=== PATIENT | male | born 1940 | race Hispanic/Latino ===

== ENCOUNTER 2023-02-11 13:10 | Emergency (ER) | payer OTHER ==
--- OUTSIDE RECORDS SUMMARY | 2023-02-11 13:41 | XMS REPORT | Continuity of Care Document ---
:1940 Author Organization [facility] t Address [address] [facility] [address] [place] [address] Care Team Providers Name Role Phone Unknown, Physician Primary Care Physician Unavailable MARY BARRAZA Attending Clinician Unavailable MICHELET CARREON Attending Clinician Unavailable JONATHAN GONZALEZ Attending Clinician Unavailable Kenzie Looney NP Attending Clinician Thania Proctor MD Attending Clinician Javier Montesinos MD Attending Clinician Michelet Mar MA Attending Clinician Unavailable TOBI HIDALGO Attending Clinician Unavailable Tobi Hidalgo MD Attending Clinician ZOHREH DUCKWORTH Attending Clinician Unavailable MILLY CHEW Attending Clinician Unavailable TOBI HIDALGO Admitting Clinician Unavailable Payers Payer Name Policy Type Policy Number Effective Date Expiration Date Kyle HER MEDICARE HMO [id number] 2021 00:00:00 Problems Condition Condition Condition Status Onset Resolution Last Treating Co mments Source Name Details Category Date Date Treatment Clinician Date 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 5-[address] sterolemia sterolemia 00:00: Ho spita 00 l 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), syndrome), 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 [facility] 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:00: 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 using bioprosthe bioprosthe sis sis 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 00:00: 00 Pacemaker Pacemaker Disease Active UT 12-28 Health 00:00: 00 Paroxysmal Paroxysmal Disease Active U T atrial atrial 12-18 Health fibrillati fibrillati 00:00: on on 00 Essential Essential Disease Active UT hypertensi hypertensi 12-18 He alth on, benign on, benign 00:00: 00 Sleep Sleep Disease Active UT apnea apnea 12-18 Health 00:00: 00 Aortic Aortic Disease Active UT stenosis stenosis 12-18 Health 00:00: 00 Paroxysmal Paroxysmal Disease Active M ethodi atrial atrial 3-25 st fibrillati fibrillati 00:00: Ho spita on on 00 l SOB SOB Disease Active [facility] (shortness (shortness 2-12 st of breath) of breath) 00:00: Ho spita 00 l Chronic Chronic Disease Active 2015-06 [facility] kidney kidney 2-02 st disease, disease, 00:00: Hospit a stage III stage III 00 l (moderate) (moderate) Aortic Aortic Disease Active 2015-06 Overview: Method i stenosis, stenosis, 2-02 Formattin s t moderate moderate 00:00: g of this Hos garcia 00 note l might be different from the original. By echo 02/02 Hyperglyce Hyperglyce Disease Active M ethodi mark mark 8- st 00:00: Hospita 00 l Left knee Left knee Disease Active Met hodi pain pain 02-15 st 00:00: Hospita 00 l Stenosis Stenosis Disease Active Overview: Me thodi of right of right 02-[address] carotid carotid 00:00: g of this Hospi ta artery artery 00 note l might be different from the original. <60% by ultrasoun d Essential Essential Disease Active Met hodi hypertensi hypertensi 06-20 st on on 00:00: Hospita 00 l GERD GERD Disease Active [facility] (gastroeso (gastroeso st phageal phageal Hospita reflux reflux l disease) disease) Allergies, Adverse Reactions, Alerts This patient has no known allergies or adverse reactions. Family History Family Member Diagnosis Comments Start Date Stop Date Source Natural brother Heart disease [facility] Natural brother Leukemia [facility] Natural father [facility] Natural mother Heart disease [facility] Social History Social Habit Start Date Stop Date Quantity Comments Source Gender identity [facility] Sexual orientation [facility] Alcohol intake 2023-02-07 2023-02-07 Current [facility] 00:00:00 00:00:00 non-drinker of Hospital alcohol (finding) History of Social 2023-02-07 2023-02-[address] function 00:00:00 00:00:00 Hospital Tobacco use and 2022-03-25 2022-03-25 Smokeless [facility] exposure 00:00:00 00:00:00 tobacco non-user Hospital Exposure to 2021-12-18 2021-12-28 Not sure [place] [facility] SARS-CoV-2 (event) 00:00:00 13:47:00 Sex Ass[birth year] At [birth year] [facility] 00:00:00 00:00:00 Hospital Smoking Status Start Date Stop Date Source Never smoked tobacco [facility] Medications Ordered Filled Start Stop Current Ordering Indication Dosage Frequency Signature Comments Components Source Medication Medication Date Date Medication? Clinician (SIG) Name Name aspirin Yes 81mg QD Take 1 [facility] (ECOTRIN) 8-21 tablet (81 st 81 MG 11:38: mg total) Hospita enteric 08 by mouth l coated daily. tablet omeprazole Yes 20mg QD Take 1 Metho di (PriLOSEC) 8-[address] 20 MG 11:38: (20 mg Hospita capsule 08 total) by l mouth daily. collagen/bi 2022-0 Yes 6000mg QD Take 6,000 [facility] otin/ascorb 8-[address] ic acid 11:38: mouth Hospita (COLLAGEN 08 daily. l 1500 PLUS C ORAL) aspirin 3-0 Yes 81mg QD Take 1 [facility] (ECOTRIN) 7-11 tablet (81 st 81 MG 09:28: mg total) Hospita enteric 54 by mouth l coated daily. tablet omeprazole 2022-0 Yes 20mg QD Take 1 Metho di (PriLOSEC) 7-[address] 20 MG 09:28: (20 mg Hospita capsule 54 total) by l mouth daily. collagen/bi 2022-0 Yes 6000mg QD Take 6,000 Method[facility] otin/ascorb 7-[address] ic acid 09:28: mouth Hospita (COLLAGEN 54 daily. l 1500 PLUS C ORAL) multivitami 2022-0 2022- No 1{tbl} QD Take 1 M ethodi n with 5-23 05-[address] minerals 11:25: 00:00 mouth Hospita tablet 20 :00 daily. l multivitami 2022-0 2022- No 1{tbl} QD Take 1 M ethodi n with 5-23 05-[address] minerals 11:25: 00:00 mouth Hospita tablet 20 :00 daily. l multivitami 2022-0 2022- No 1{tbl} QD Take 1 M ethodi n with 5-23 05-[address] minerals 11:25: 00:00 mouth Hospita tablet 20 :00 daily. l ascorbic 2022-0 2022- No 250mg QD Take 1 Metho di acid, 5-23 05-[address] vitamin C, 11:25: 00:00 (250 mg Hos garcia (VITAMIN C) 05 :00 total) by l 250 MG mouth tablet daily. ascorbic 2022-0 2022- No 250mg QD Take 1 Metho di acid, 5-23 05-[address] vitamin C, 11:25: 00:00 (250 mg Hos garcia (VITAMIN C) 05 :00 total) by l 250 MG mouth tablet daily. ascorbic 2022-0 2023- No 250mg QD Take 1 Metho di acid, 5-23 05-[address] vitamin C, 11:25: 00:00 (250 mg Hos garcia (VITAMIN C) 05 :00 total) by l 250 MG mouth tablet daily. cholecalcif 2022- No 1000U QD Take 1 Me thodi nahomy, 11-[address] vitamin D3, 11:24: 00:00 (1,000 Hos garcia 1,000 unit 57 :00 Units l tablet total) by mouth daily. cholecalcif 2022- No 1000U QD Take 1 Me thodi nahomy, 11-[address] vitamin D3, 11:24: 00:00 (1,000 Hos garcia 1,000 unit 57 :00 Units l tablet total) by mouth daily. cholecalcif 2022- No 1000U QD Take 1 Me thodi nahomy, 11-[address] vitamin D3, 11:24: 00:00 (1,000 Hos garcia 1,000 unit 57 :00 Units l tablet total) by mouth daily. ubidecareno 2022- No 1{capsu QD Take 1 Methodi ne (CO Q-10 - 05-23 le} capsule by s t ORAL) 11:24: 00:00 mouth Hospita 52 :00 daily. l ubidecareno 2022- No 1{capsu QD Take 1 Methodi ne (CO Q-10 5-23 05-23 le} capsule by s t ORAL) 11:24: 00:00 mouth Hospita 52 :00 daily. l ubidecareno 2022- No 1{capsu QD Take 1 Methodi ne (CO Q-10 5-23 05-23 le} capsule by s t ORAL) 11:24: 00:00 mouth Hospita 52 :00 daily. l collagen/bi 0 Yes 6000mg QD Take 6,000 Methodi otin/ascorb 5-[address] ic acid 11:22: mouth Hospita (COLLAGEN 51 daily. l 1500 PLUS C ORAL) aspirin 0 Yes 81mg QD Take 1 [facility] (ECOTRIN) 5-23 tablet (81 st 81 MG 11:22: mg total) Hospita enteric 33 by mouth l coated daily. tablet omeprazole 2023-0 Yes 20mg QD Take 1 Metho di (PriLOSEC) 5-[address] 20 MG 11:22: (20 mg Hospita capsule 33 total) by l mouth daily. amLODIPine 2021-06 Yes 5mg QD Take 1 Metho di (NORVASC) 5 0-08 tablet (5 st mg tablet 00:00: mg total) Hos garcia 00 by mouth l daily. amLODIPine 2021-06 Yes 5mg QD Take 1 Metho di (NORVASC) 5 0-08 tablet (5 st mg tablet 00:00: mg total) Hos garcia 00 by mouth l daily. amLODIPine 2021-06 Yes 5mg QD Take 1 Metho di (NORVASC) 5 0-08 tablet (5 st mg tablet 00:00: mg total) Hos garcia 00 by mouth l daily. ascorbic 0 Yes 250mg QD Take 250 UT acid 7-11 mg by [facility] (Vitamin C) 13:55: mouth 1 250 MG 06 (one) time tablet each day. cholecalcif Yes 1000U QD Take 1,000 UT nahomy 7-11 Units by imedo (Vitamin 13:55: mouth 1 D-3) 25 MCG 06 (one) time (1000 UT) each day. tablet aspirin 81 0 2021- No 81mg QD Take 81 mg UT MG EC 12-28 by mouth 1 Health tablet 13:55: 00:00 (one) time 06 :00 each day. esomeprazol 2021-0 2021- No 20mg QD Take 20 mg UT e (NexIUM) 12-28 by mouth [address] 13:55: 00:00 (one) time capsule 06 :00 each day. esomeprazol 2021-0 2021- No 20mg QD Take 20 mg Methodi e (NexIUM) 12-[address] 20 MG 11:00: 00:00 daily Hospita capsule 01 :00 before l breakfast. pantoprazol 2021-0 2022- No Metho di e 12-11 st (PROTONIX) 00:00: 00:00 Hospit a 40 MG EC 00 :00 l tablet pantoprazol 2021-0 2022- No Metho di e 12-11 st (PROTONIX) 00:00: 00:00 Hospit a 40 MG EC 00 :00 l tablet pantoprazol 2022- No Metho di e 12-11- st (PROTONIX) 00:00: 00:00 Hospit a 40 MG EC 00 :00 l tablet atorvastati Yes UT n (Lipitor) 6-12 Health 20 MG 00:00: tablet 00 methylPREDN 2021- No TAKE BY UT ISolone 11-16 MOUTH Health (Medrol 00:00: 00:00 DIRECTED Dospak) 4 00 :00 ON INSIDE MG tablets OF PACKAGE Xarelto 15 Yes 15mg QD Take 15 mg U T MG tablet 11-09 by mouth 1 Heal th 00:00: (one) time 00 each day. lisinopril Yes 10mg QD Take 10 mg U T 10 MG 10-16 by mouth 1 Health tablet 00:00: (one) time 00 each day. amLODIPine 2021- No 5mg QD Take 5 mg U T (Norvasc) 5 10-06 by mouth 1 H ealth MG tablet 00:00: 00:00 (one) time 00 :00 each day. sotalol AF 2021- No 40mg Q.5D Take 40 mg UT (Betapace 09-01 by mouth Healt h AF) 80 MG 00:00: 00:00 in the tablet 00 :00 morning and 40 mg in the evening. TAKE 1/2 (ONE-HALF) TABLET BY MOUTH TWICE DAILY. clopidogrel 2021- No 75mg QD Take 75 mg UT (Plavix) 75 08-21 by mouth 1 H ealth MG tablet 00:00: 00:00 (one) time 00 :00 each day. amLODIPine 2021- No 5mg QD Take 5 mg M ethodi (NORVASC) 5 07-[address] mg tablet 00:00: 00:00 daily. Hospi ta 00 :00 l lisinopriL 2021- No Take 1 Meth nereida (PRINIVIL) 02-[address] 10 mg 00:00: 00:00 mouth once Hospi ta tablet 00 :00 daily for l 30 days lisinopriL 2021- No Take 1 Meth nereida (PRINIVIL) 02-[address] 10 mg 00:00: 00:00 mouth once Hospi ta tablet 00 :00 daily for l 30 days lisinopriL 2021- No Take 1 Meth nereida (PRINIVIL) 02-[address] 10 mg 00:00: 00:00 mouth once Hospi ta tablet 00 :00 daily for l 30 days sotaloL 2019-06- No 80mg Q.5D Take 80 mg Met hodi (BETAPACE) 07-[address] 80 MG 00:00: 00:00 (two) Hospita tablet 00 :00 times a l day. rivaroxaban 2022- No 1{tbl} QD Take 1 M ethodi (XARELTO) 01-24 tablet (20 st 20 mg 00:00: 00:00 mg total) Hospit a tablet 00 :00 by mouth l daily. rivaroxaban 2022- No 1{tbl} QD Take 1 M ethodi (XARELTO) 01-24 tablet (20 st 20 mg 00:00: 00:00 mg total) Hospit a tablet 00 :00 by mouth l daily. rivaroxaban 2022- No 1{tbl} QD Take 1 M ethodi (XARELTO) 01-24 tablet (20 st 20 mg 00:00: 00:00 mg total) Hospit a tablet 00 :00 by mouth l daily. atorvastati 2018-06 Yes [id number] 20mg QD Take 1 Methodi n (LIPITOR) 07-11 9100 tablet (20 st 20 MG 00:00: mg total) Hospita tablet 00 by mouth l daily. Default OP ins atorvastati 2018-06 Yes [id number] 20mg QD Take 1 Methodi n (LIPITOR) - 9100 tablet (20 st 20 MG 00:00: mg total) Hospita tablet 00 by mouth l daily. Default OP ins atorvastati 2018-06 Yes [id number] 20mg QD Take 1 Methodi n (LIPITOR) 07-11 9100 tablet (20 st 20 MG 00:00: mg total) Hospita tablet 00 by mouth l daily. Default OP ins Immunizations Ordered Immunization Filled Immunization Date Status Commen ts Source Name Name FLUZONE HIGH-DOSE PF 2022-04-23 Completed Meth odist 00:00:00 [facility] FLUZONE HIGH-DOSE PF 2022-04-23 Completed Meth odist 00:00:00 [facility] FLUZONE HIGH-DOSE PF 2022-04-23 Completed Meth odist 00:00:00 [facility] FLUZONE HIGH-DOSE PF 2021-07-17 Completed Meth odist 00:00:00 [facility] FLUZONE HIGH-DOSE PF 2021-07-17 Completed Meth odist 00:00:00 [facility] FLUZONE HIGH-DOSE PF 2021-07-17 Completed Meth odist 00:00:00 [facility] PFIZER COVID-19 MRNA 2020-09-27 Completed Meth odist VACCINATION 00:00:00 [facility] PFIZER COVID-19 MRNA 2020-09-27 Completed Meth odist VACCINATION 00:00:00 [facility] PFIZER COVID-19 MRNA 2020-09-27 Completed Meth odist VACCINATION 00:00:00 [facility] PFIZER COVID-19 MRNA 2020-09-06 Completed Meth odist VACCINATION 00:00:00 [facility] PFIZER COVID-19 MRNA 2020-09-06 Completed Meth odist VACCINATION 00:00:00 [facility] PFIZER COVID-19 MRNA 2020-09-06 Completed Meth odist VACCINATION 00:00:00 [facility] FLUZONE HIGH-DOSE PF 2019-05-11 Completed Meth odist 00:00:00 [facility] FLUZONE HIGH-DOSE PF 2019-05-11 Completed Meth odist 00:00:00 [facility] FLUZONE HIGH-DOSE PF 2019-05-11 Completed Meth odist 00:00:00 [facility] FLUCELVAX QUAD PF 2018-08-[address] 00:00:00 Hospital FLUCELVAX QUAD PF 2018-08-[address] 00:00:00 Hospital FLUCELVAX QUAD PF 2018-08-[address] 00:00:00 [facility] FLUZONE HIGH-DOSE PF 2016-05-21 Completed Meth odist 00:00:00 [facility] FLUZONE HIGH-DOSE PF 2016-05-21 Completed Meth odist 00:00:00 Hospital FLUZONE HIGH-DOSE PF 2016-05-21 Completed Meth odist 00:00:00 [facility] Pneumococcal 2016-01-06 Completed [facility]06 Completed [facility] Con[facility]ate 13[facility] P[facility] 2016-01-06 Completed [facility] Conjugate 13[facility] Vital Signs Vital Name Observation Time Observation Value Comments Source Systolic blood 2021-12-28 18:51:00 130 mm[Hg] [facility] Diastolic blood 2021-12-28 18:51:00 70 mm[Hg] [facility] pressure Heart rate 2021-12-28 18:51:00 120 /min [facility] Body height 2021-12-28 18:51:00 170.2 cm UT [facility] Body weight 2021-12-28 18:51:00 90.266 kg UT [facility] BMI 2021-12-28 18:51:00 31.17 kg/m2 [facility] Systolic blood 2023-02-07 16:36:00 144 mm[Hg] [facility] pressure Diastolic blood 2023-02-07 16:36:00 68 mm[Hg] [facility] pressure Heart rate 2023-02-07 16:36:00 98 /min [facility] Body temperature 2023-02-07 16:36:00 36.17 Maggie [facility] Body height 2023-02-07 16:36:00 170.2 cm [facility] Body weight 2023-02-07 16:36:00 91.629 kg [facility] BMI 2023-02-07 16:36:00 31.64 kg/m2 [facility] Oxygen saturation in 2023-02-07 16:36:00 98 /min [facility] Arterial blood by Pulse oximetry Respiratory rate 2023-02-07 15:15:00 18 /min [facility] Systolic blood 2023-01-18 15:00:00 138 mm[Hg] [facility] pressure Diastolic blood 2023-01-18 15:00:00 63 mm[Hg] [facility] pressure Heart rate 2023-01-18 15:00:00 83 /min [facility] Body temperature 2023-01-18 15:00:00 35.72 Maggie [facility] Respiratory rate 2023-01-18 15:00:00 17 /min [facility] Body height 2023-01-18 15:00:00 170.2 cm [facility] Body weight 2023-01-18 15:00:00 92.806 kg [facility] BMI 2023-01-18 15:00:00 32.04 kg/m2 [facility] Oxygen saturation in 2023-01-18 15:00:00 96 /min [facility] Arterial blood by Pulse oximetry Systolic blood 2022-12-15 14:53:00 163 mm[Hg] [facility] pressure Diastolic blood 2022-12-15 14:53:00 70 mm[Hg] [facility] pressure Heart rate 2022-12-15 14:53:00 68 /min [facility] Body temperature 2022-12-15 14:53:00 36.06 Maggie [facility] Respiratory rate 2022-12-15 14:53:00 17 /min [facility] Body height 2022-12-15 14:53:00 170.2 cm [facility] Body weight 2022-12-15 14:53:00 91.763 kg [facility] BMI 2022-12-15 14:53:00 31.68 kg/m2 [facility] Oxygen saturation in 2022-12-15 14:53:00 99 /min [facility] Arterial blood by Pulse oximetry Procedures Procedure Date / Time Performing Clinician Source Performed CBC WITH PLATELET AND 2023-02-07 15:24:00 [facility] DIFFERENTIAL SMEAR REVIEW 2023-02-07 15:24:00 [facility] CREATE PERIPHERAL SMEAR FOR 2023-02-07 15:24:00 [facility] ORDERING PROVIDER'S REVIEW CBC WITH PLATELET AND 2023-01-18 15:03:00 [facility] DIFFERENTIAL SMEAR REVIEW 2023-01-18 15:03:00 [facility] CBC WITH PLATELET AND 2022-12-15 14:44:00 [facility] DIFFERENTIAL SMEAR REVIEW 2022-12-15 14:44:00 [facility] CBC WITH PLATELET AND 2022-11-30 16:15:00 [facility] DIFFERENTIAL SMEAR REVIEW 2022-11-30 16:15:00 [facility] CBC WITH PLATELET AND 2022-11-16 18:06:00 [facility] DIFFERENTIAL SMEAR REVIEW 2022-11-16 18:06:00 [facility] CBC WITH PLATELET AND 2022-11-05 15:53:00 [facility] DIFFERENTIAL BASIC METABOLIC PANEL 2022-10-15 05:00:00 [facility] HEPATIC FUNCTION PANEL 2022-10-15 05:00:00 [facility] LDH 2022-10-15 05:00:00 [facility] FERRITIN LEVEL 2022-10-15 05:00:00 [facility] FIBRINOGEN 2022-10-15 05:00:00 [facility] TOTAL IRON BINDING CAPACITY 2022-10-15 05:00:00 [facility] BASIC METABOLIC PANEL 2022-07-27 17:01:00 [facility] HEMOGLOBIN A1C 2022-07-27 17:01:00 [facility] ESTIMATED GFR 2022-07-27 17:01:00 [facility] BC CHROMOSOME ANALYSIS 2022-05-25 17:50:00 [facility] PANEL BC MDS FISH PANEL 2022-05-25 17:50:00 [facility] SURGICAL PATHOLOGY REQUEST 2022-05-25 17:47:00 [facility] FLOW CYTOMETRY EVALUATION 2022-05-25 17:02:00 [facility] BONE MARROW TRAY 2022-05-25 17:02:00 [facility] MISCELLANEOUS REFERRAL TEST 2022-05-25 17:02:00 [facility] TESTOSTERONE, TOTAL, 2022-03-25 05:00:00 [facility] IMMUNOASSAY (FOR ADULT MALES) VITAMIN B6 LEVEL, PLASMA 2022-03-25 05:00:00 [facility] VITAMIN B1 (THIAMINE) 2022-03-25 05:00:00 [facility] VITAMIN B12 LEVEL 2022-03-25 05:00:00 [facility] THYROID STIMULATING HORMONE 2022-03-25 05:00:00 [facility] SEDIMENTATION RATE 2022-03-25 05:00:00 [facility] RHEUMATOID FACTOR 2022-03-25 05:00:00 [facility] ZZRETICULOCYTE COUNT, 2022-03-25 05:00:00 [facility] AUTOMATED PROTEIN ELECTROPHORESIS 2022-03-25 05:00:00 [facility] RUSS LDH 2022-03-25 05:00:00 [facility] HEPATIC FUNCTION PANEL 2022-03-25 05:00:00 [facility] FERRITIN LEVEL 2022-03-25 05:00:00 [facility] TOTAL IRON BINDING CAPACITY 2022-03-25 05:00:00 [facility] HEPATITIS C ANTIBODY 2022-03-25 05:00:00 [facility] HUMAN IMMUNODEFICIENCY VIRUS 2022-03-25 05:00:00 [facility] 1 (HIV-1), QUANTITATIVE PCR HEMOGLOBINOPATHY EVALUATION 2022-03-25 05:00:00 [facility] HEPATITIS B SURFACE ANTIGEN 2022-03-25 05:00:00 [facility] FOLATE LEVEL 2022-03-25 05:00:00 [facility] ERYTHROPOIETIN 2022-03-25 05:00:00 [facility] BASIC METABOLIC PANEL 2022-03-25 05:00:00 [facility] GIOVANNA SCREEN W IFA W REFLEX TO 2022-03-25 05:00:00 [facility] TITER ZZHEMOGLOBINOPATHY 2022-03-25 05:00:00 Proctor Thania Ott [facility] EVALUATION CBC HEMOGRAM 2022-01-27 20:22:00 Tobi Hidalgo [facility] MAGNESIUM LEVEL 2022-01-27 20:22:00 [facility] FOLATE LEVEL 2022-01-27 20:22:00 G[facility], [facility] BASIC METABOLIC PANEL 2022-01-27 20:22:00 [facility] ESTIMATED GFR 2022-01-27 20:22:00 [facility] ECG 12-LEAD 2021-12-28 18:55:00 Michelet Carreon [facility] BASIC METABOLIC PANEL 2021-12-25 16:18:00 [facility] CBC WITH PLATELET AND 2021-12-25 16:18:00 [facility] DIFFERENTIAL HEMOGLOBIN A1C 2021-12-25 16:18:00 [facility] Plan of Care Planned Activity Planned Date Details Comments Source Future Scheduled 2023-02-11 SHINGLES VACCINES (1 Met [facility] Test 07:57:33 of 2) [code = SHINGLES VACCINES (1 of 2)] Future Scheduled 2023-02-11 65+ PNEUMOCOCCAL [facility] Test 07:57:33 VACCINE (2 - PPSV23 if available, else PCV20) [code = 65+ PNEUMOCOCCAL VACCINE (2 - PPSV23 if available, else PCV20)] Future Scheduled 2023-02-11 COVID-19 VACCINE (3 - [facility] Test 07:57:33 Pfizer series) [code = COVID-19 VACCINE (3 - Pfizer series)] Future Scheduled 2023-02-11 INFLUENZA VACCINE (#1) [facility] Test 07:57:33 [code = INFLUENZA VACCINE (#1)] Future Scheduled 2023-01-19 SHINGLES VACCINES (1 Met [facility] Test 09:42:24 of 2) [code = SHINGLES VACCINES (1 of 2)] Future Scheduled 2023-01-19 65+ PNEUMOCOCCAL [facility] Test 09:42:24 VACCINE (2 - PPSV23 if available, else PCV20) [code = 65+ PNEUMOCOCCAL VACCINE (2 - PPSV23 if available, else PCV20)] Future Scheduled 2023-01-19 COVID-19 VACCINE (3 - [facility] Test 09:42:24 Pfizer series) [code = COVID-19 VACCINE (3 - Pfizer series)] Future Scheduled 2023-01-19 INFLUENZA VACCINE Method [facility] Test 09:42:24 [code = INFLUENZA VACCINE] Future Scheduled 2022-12-20 SHINGLES VACCINES (1 [facility] Test 09:23:52 of 2) [code = SHINGLES VACCINES (1 of 2)] Future Scheduled 2022-12-20 65+ [facility]AL [facility] 09:23:52 VACCINE (2 - PPSV23 if available, else PCV20) [code = 65+ PNEUMOCOCCAL VACCINE (2 - PPSV23 if available, else PCV20)] Future Scheduled 2022-12-20 COVID-19 VACCINE (3 - [facility] Test 09:23:52 Pfizer series) [code = COVID-19 VACCINE (3 - Pfizer series)] Future Scheduled 2022-12-20 INFLUENZA VACCINE [facility] Test 09:23:52 [code = INFLUENZA VACCINE] Encounters Start End Encounter Admission Attending Care Care Encounter Source Date/Time Date/Time Type Type Clinicians Facility Department ID 2023-01-19 Outpatient [facility] [id number] [place] 17:44:49 [id number] [facility] 2022-12-27 Outpatient [facility] [id number] [place] 18:34:02 [id number] [facility] 2022-12-08 Outpatient [facility] [id number] [place] 16:55:56 [id number] [facility] 2022-03-19 Outpatient [facility] [id number] [place] 15:07:13 [id number] [facility] 2022-01-[address] [facility] [id number] [facility] 11:36:34 [facility] 2021-12-31 Outpatient [facility] [id number] [place] 13:32:34 [id number] [facility] 2021-12-28 Outpatient [facility] [id number] [place] 13:43:13 MICHELET [id number] [facility] 2021-12-15 Outpatient MARISABEL [facility] [id number] -[id number] [place] 09:57:31 MICHELET [id number] [facility] 2021-12-14 Outpatient MARISABEL, [facility] [id number] [place] 10:50:07 MICHELET [id number] [facility] 2021-12-10 Outpatient [facility] [id number] [place] 15:44:15 [id number] [facility] 2021-12-05 Outpatient [facility] [id number] [place] 13:29:31 [id number] [facility] 2021-10-22 Outpatient [facility] [id number] [place] 13:59:24 [id number] [facility] 2021-08-03 Outpatient CARLOS, [facility] [address] [facility] 16:06:44 [facility] 2023-02-07 2023-02-07 Office Aure, 1.2.840.7 [id number] 2100 [id number] Methodi 11:20:00 11:47:52 Visit Kenzie 67606.1.[address] 3.430.2.7 Hospit a .3.472938 l .8 2023-02-07 2023-02-07 Nurse Only Reina, 1.2.840.1 [id number] 266 [id number] Methodi 10:30:00 11:00:00 Thania Ott 44241.1.1 225 s t 3.430.2.7 Hospit a .3.053773 l .8 2023-02-07 2023-02-07 Outpatient REINA [facility] [id number] [place] 00:00:00 00:00:00 THANIA [address] 2023-02-07 2023-02-07 Outpatient [facility] [id number] [place] 00:00:00 00:00:[address] 2023-01-18 2023-01-18 Nurse Only Reina, 1.2.840.1 [id number] 345 [id number] Methodi 10:30:00 11:00:00 Thania Ott 58940.1.1 636 s t 3.430.2.7 Hospit a .3.569857 l .8 2023-01-18 2023-01-18 Nurse Only REINA 1.2.840.1 [id number] 652 [id number] [place] 00:00:00 00:00:00 THANIA 84544.1.1 [address] .3.186406 .8 2022-12-28 2022-12-28 Nurse Only Reina, 1.2.840.1 [id number] 020 [id number] Methodi 10:30:00 11:00:00 Thania Donahueh 53129.1.1 649 s t 3.430.2.7 Hospit a .3.595748 l .8 2022-12-28 2022-12-28 Nurse Only Reina, 1.2.840.1 [id number] 660 [id number] Methodi 10:30:00 11:00:00 Thania Donahueh 04784.1.1 649 s t 3.430.2.7 Hospit a .3.736320 l .8 2022-12-28 2022-12-28 Office Reina, 1.2.840.3 [id number] 44734 05168 Methodi 09:30:00 09:58:23 Visit Thania Donahueh 85206.1.1 509 s t 3.430.2.7 Hospit a .3.386469 l .8 2022-12-28 2022-12-28 Office Reina, 1.2.840.3 [id number] 21001 66587 Methodi 09:30:00 09:58:23 Visit Kelivy Namrata 00282.1.1 509 s t 3.430.2.7 Hospit a .3.811978 l .8 2022-12-15 2022-12-15 Nurse Only Proctor, 1.2.840.1 [id number] 277 [id number] Methodi 10:00:00 10:30:00 Thania Donahueh 92224.1.1 501 s t 3.430.2.7 Hospit a .3.202818 l .8 2022-12-15 2022-12-15 Nurse Only Reina, 1.2.840.1 [id number] 498 [id number] Methodi 10:00:00 10:30:00 Raffity Namrata 61256.1.1 501 s t 3.430.2.7 Hospit a .3.156217 l .8 2022-11-30 2022-11-30 Nurse Only Reina, 1.2.840.1 [id number] 383 [id number] Methodi 11:00:00 11:30:00 Raffity Namrata 44219.1.1 634 s t 3.430.2.7 Hospit a .3.687494 l .8 2022-11-30 2022-11-30 Nurse Only Reina, 1.2.840.1 [id number] 192 [id number] Methodi 11:00:00 11:30:00 Kelty Namrata 36807.1.1 634 s t 3.430.2.7 Hospit a .3.696399 l .8 2022-11-30 2022-11-30 Travel 1.2.840.1 1.2.660.480 3497 585732 Methodi 00:00:00 00:00:[address] 3.430.2.7 0.2.7.3.698 Ho spita .3.526864 084.8 l .8 2022-11-30 2022-11-30 Travel 1.2.840.1 1.2.356.617 5316 031939 Methodi 00:00:00 00:00:[address] 3.430.2.7 0.2.7.3.698 Ho spita .3.824114 084.8 l .8 2022-11-16 2022-11-16 Nurse Only Reina, 1.2.840.1 [id number] 541 [id number] Methodi 13:00:00 13:30:00 Thania Namrata 17436.1.1 421 s t 3.430.2.7 Hospit a .3.938016 l .8 2022-11-16 2022-11-16 Nurse Only Reina, 1.2.840.1 [id number] 749 [id number] Methodi 13:00:00 13:30:00 Thania Namrata 60470.1.1 421 s t 3.430.2.7 Hospit a .3.044742 l .8 2022-11-16 2022-11-16 Travel 1.2.840.1 1.2.849.465 6076 393422 Methodi 00:00:00 00:00:[address] 3.430.2.7 0.2.7.3.698 Ho spita .3.755385 084.8 l .8 2022-11-16 2022-11-16 Travel 1.2.840.1 1.2.447.983 2675 990985 Methodi 00:00:00 00:00:[address] 3.430.2.7 0.2.7.3.698 Ho spita .3.135593 084.8 l .8 2022-11-09 2022-11-09 Office Montesinos, 1.2.840.1 [id number] 252977 8726 Methodi 11:30:00 11:41:51 Visit Javier JeanettePrecious 59008.1.[address] 3.430.2.7 Hospit a .3.932927 l .8 2022-11-09 2022-11-09 Office Montesinos, 1.2.840.1 [id number] 794930 9832 Methodi 11:30:00 11:41:51 Visit Javier JeanettePrecious 72033.1.[address] 3.430.2.7 Hospit a .3.089084 l .8 2022-11-05 2022-11-05 Nurse Only Reina, 1.2.840.1 [id number] 223 [id number] Methodi 11:00:00 11:30:00 Thania Ott 38323.1.1 860 s t 3.430.2.7 Hospit a .3.766310 l .8 2022-11-05 2022-11-05 Nurse Only Reina, 1.2.840.1 [id number] 176 [id number] Methodi 11:00:00 11:30:00 Thania Ott 62311.1.1 860 s t 3.430.2.7 Hospit a .3.275541 l .8 2022-11-05 2022-11-05 Travel 1.2.840.1 1.2.129.568 5542 390881 Methodi 00:00:00 00:00:[address] 3.430.2.7 0.2.7.3.698 Ho spita .3.753149 084.8 l .8 2022-11-05 2022-11-05 Travel 1.2.840.1 1.2.208.416 5505 925814 Methodi 00:00:00 00:00:[address] 3.430.2.7 0.2.7.3.698 Ho spita .3.451095 084.8 l .8 2022-11-01 2022-11-01 Travel 1.2.840.1 1.2.559.021 8384 048529 Methodi 00:00:00 00:00:[address] 3.430.2.7 0.2.7.3.698 Ho spita .3.101636 084.8 l .8 2022-11-01 2022-11-01 Travel 1.2.840.1 1.2.808.852 0139 050375 Methodi 00:00:00 00:00:[address] 3.430.2.7 0.2.7.3.698 Ho spita .3.668752 084.8 l .8 2022-10-22 2022-10-22 Telephone Proctor, 1.2.840.1 [id number] 525 [id number] Methodi 00:00:00 00:00:00 Thania Donahueh 94254.1.1 017 s t 3.430.2.7 Hospit a .3.895901 l .8 2022-10-22 2022-10-22 Telephone Reina, 1.2.840.8 [id number] 695 5121114 Methodi 00:00:00 00:00:00 Thania Ott 09698.1.1 017 s t 3.430.2.7 Hospit a .3.361714 l .8 2022-10-15 2022-10-15 Nurse Only Reina, 1.2.840.1 [id number] 485 [id number] Methodi 14:00:00 14:30:00 Thania Ott 48725.1.1 936 s t 3.430.2.7 Hospit a .3.736268 l .8 2022-10-15 2022-10-15 Nurse Only Reina, 1.2.840.1 [id number] 381 6876307 Methodi 14:00:00 14:30:00 Thania Ott 23284.1.1 936 s t 3.430.2.7 Hospit a .3.874071 l .8 2022-10-15 2022-10-15 Office Reina, 1.2.840.6 [id number] 99482 Methodi 13:00:00 13:46:28 Visit Thania Ott 69472.1.1 094 s t 3.430.2.7 Hospit a .3.135250 l .8 2022-10-15 2022-10-15 Office Reina, 1.2.840.5 [id number] 21001 58964 Methodi 13:00:00 13:46:28 Visit Thania Ott 32689.1.1 094 s t 3.430.2.7 Hospit a .3.649136 l .8 2022-10-15 2022-10-15 Travel 1.2.840.1 1.2.207.716 3158 602768 Methodi 00:00:00 00:00:[address] 3.430.2.7 0.2.7.3.698 Ho spita .3.979240 084.8 l .8 2022-10-15 2022-10-15 Travel 1.2.840.1 1.2.178.894 7946 848205 Methodi 00:00:00 00:00:[address] 3.430.2.7 0.2.7.3.698 Ho spita .3.941977 084.8 l .8 2022-07-27 2022-07-27 Lab Montesinos, 1.2.840.1 [id number] 098825 7800 Methodi 11:05:00 11:10:[address] J[address] Castillo [address]01.1.[address] 3.430.2.7 Hospit a .3.367909 l .8 2022-07-27 2022-07-27 Lab Montesinos, 1.2.840.1 583700190 176649 4953 Methodi 11:05:00 11:10:[address] 3.430.2.7 Hospit a .3.687936 l .8 2022-07-27 2022-07-27 Office Montesinos, 1.2.840.1 [id number] 665511 4137 Methodi 10:30:00 10:55:00 Visit Javier Castillo 36299.1.[address] 3.430.2.7 Hospit a .3.734796 l .8 2022-07-27 2022-07-27 Office Montesinos, 1.2.840.1 [id number] 882754 9101 Methodi 10:30:00 10:55:00 Visit Javier Castillo 51221.1.[address] 3.430.2.7 Hospit a .3.239607 l .8 2022-07-19 2022-07-19 Office Proctor, 1.2.840.0 [id number] 20911 93724 Methodi 10:30:00 10:45:00 Visit Thania Ott 32572.1.1 307 s t 3.430.2.7 Hospit a .3.358853 l .8 2022-07-19 2022-07-19 Office Proctor, 1.2.840.3 2791344970 81361 Methodi 10:30:00 10:45:00 Visit Thania Ott 95528.1.1 307 s t 3.430.2.7 Hospit a .3.889908 l .8 2022-07-19 2022-07-19 Travel 1.2.840.1 1.2.395.624 8623 512357 Methodi 00:00:00 00:00:[address] 3.430.2.7 0.2.7.3.698 Ho spita .3.368971 084.8 l .8 2022-07-19 2022-07-19 Travel 1.2.840.1 1.2.590.279 4998 055970 Methodi 00:00:00 00:00:[address] 3.430.2.7 0.2.7.3.698 Ho spita .3.748010 084.8 l .8 2022-06-28 2022-06-28 Telephone Mar, 1.2.840.9 [id number] 845 0408929 Methodi 00:00:00 00:00:[address] 3.430.2.7 Hospit a .3.169559 l .8 2022-06-28 2022-06-28 Telephone Mar, 1.2.840.2 [id number] 939 4336055 Methodi 00:00:00 00:00:[address] 3.430.2.7 Hospit a .3.187078 l .8 2022-05-25 2022-05-26 Melanie Proctor, 1.2.840.7 [id number] 734 3437849 Methodi 10:30:00 08:30:22 visit Thania Ott 18719.1.1 267 s t 3.430.2.7 Hospit a .3.906041 l .8 2022-05-25 2022-05-26 Melanie Prcotor 1.2.840.2 5840054939 417 1557808 Methodi 10:30:00 08:30:22 visit Thania Ott 42084.1.1 267 s t 3.430.2.7 Hospit a .3.388624 l .8 2022-05-25 2022-05-25 Shayy Proctor 1.2.840.1 071803650 382052 3701 Methodi 11:35:00 11:40:00 Thania Ott 39398.1.1 347 s t 3.430.2.7 Hospit a .3.277768 l .8 2022-05-25 2022-05-25 Lab Proctor, 1.2.840.1 170284925 365030 7976 Methodi 11:35:00 11:40:00 Thania Ott 79969.1.1 347 s t 3.430.2.7 Hospit a .3.824337 l .8 2022-05-25 2022-05-25 Procedure Proctor, 1.2.840.1 197407564 2100 704774 Methodi 10:30:00 11:00:00 visit Thania Ott 62404.1.1 092 s t 3.430.2.7 Hospit a .3.170599 l .8 2022-05-25 2022-05-25 Procedure Proctor, 1.2.840.1 267311046 2099 627299 Methodi 10:30:00 11:00:00 visit Thania Ott 07713.1.1 092 s t 3.430.2.7 Hospit a .3.826936 l .8 2022-05-25 2022-05-25 Travel 1.2.840.1 1.2.302.709 0792 211008 Methodi 00:00:00 00:00:[address] 3.430.2.7 0.2.7.3.698 Ho spita .3.937618 084.8 l .8 2022-05-25 2022-05-25 Travel 1.2.840.1 1.2.862.124 8363 338626 Methodi 00:00:00 00:00:[address] 3.430.2.7 0.2.7.3.698 Ho spita .3.734922 084.8 l .8 2022-04-23 2022-04-23 Office Montesinos, 1.2.840.1 387631966 007562 4613 Methodi 10:00:00 10:16:07 Visit Javier ReidPrecious 46815.1.[address] 3.430.2.7 Hospit a .3.277625 l .8 2022-04-23 2022-04-23 Office Frank, 1.2.840.1 [id number] 637904 1577 Methodi 10:00:00 10:16:07 Visit Javier Castillo 04864.1.[address] 3.430.2.7 Hospit a .3.127699 l .8 2022-04-08 2022-04-08 Telephone [place], 1.2.840.2 [id number] 21 [id number] Methodi 00:00:00 00:00:[address] 3.430.2.7 Hospit a .3.076850 l .8 2022-04-08 2022-04-08 Telephone [place], 1.2.840.0 [id number] 21 47576741 Methodi 00:00:00 00:00:[address] 3.430.2.7 Hospit a .3.406086 l .8 2022-03-25 2022-03-25 Office Reina, 1.2.840.8 3558907982 47806 Methodi 13:00:00 13:50:27 Visit Thania Ott 51578.1.1 982 s t 3.430.2.7 Hospit a .3.846889 l .8 2022-03-25 2022-03-25 Office Reina, 1.2.840.0 5610095959 21001 34267 Methodi 13:00:00 13:50:27 Visit Thania Ott 79785.1.1 982 s t 3.430.2.7 Hospit a .3.228926 l .8 2022-03-25 2022-03-25 Travel 1.2.840.1 1.2.674.625 7142 521898 Methodi 00:00:00 00:00:[address] 3.430.2.7 0.2.7.3.698 Ho spita .3.013230 084.8 l .8 2022-03-25 2022-03-25 Travel 1.2.840.1 1.2.788.049 1592 824392 Methodi 00:00:00 00:00:[address] 3.430.2.7 0.2.7.3.698 Ho spita .3.791491 084.8 l .8 2022-02-25 2022-02-25 Telephone Zaid, 1.2.840.6 [id number] 925 5415686 Methodi 00:00:00 00:00:[address] 3.430.2.7 Hospit a .3.194967 l .8 2022-02-25 2022-02-25 Telephone Zaid, 1.2.840.6 [id number] 037 3215263 Methodi 00:00:00 00:00:[address] 3.430.2.7 Hospit a .3.767007 l .8 2022-02-16 2022-02-16 Outpatient GWEN, [facility] CAR [address] [facility] 13:12:00 23:59:00 [facility] 2022-01-27 2022-01-27 Lab Gwen, 1.2.840.1 [id number] 577591 2066 Methodi 14:50:00 14:55:00 [facility] [address]202.1.[address] 3.430.2.7 Hospit a .3.617366 l .8 2022-01-27 2022-01-27 Travel 1.2.840.1 1.2.994.321 3105 899194 Methodi 00:00:00 00:00:[address] 3.430.2.7 0.2.7.3.698 Ho spita .3.402029 084.8 l .8 2021-12-28 2021-12-28 Office [facility] 1.2.122.162 5649 26728 [place] 14:15:00 14:43:42 Visit Michelet SINGH 350.1.13.58 H [facility] 9.2.7.2.686 600.0432911 1 2021-12-25 2021-12-25 Lab Montesinos, 1.2.840.1 694989100 818211 2955 Methodi 11:30:00 11:35:00 Javier Castillo 69753.1.[address] 3.430.2.7 Hospit a .3.328830 l .8 2021-12-25 2021-12-25 Office Montesinos, 1.2.840.1 [id number] 573421 2639 Methodi 11:00:00 11:14:44 Visit Javier Castillo 08221.1.[address] 3.430.2.7 Hospit a .3.949083 l .8 2021-12-25 2021-12-25 Travel 1.2.840.1 1.2.073.211 4501 822282 Methodi 00:00:00 00:00:[address] 3.430.2.7 0.2.7.3.698 Ho spita .3.463679 084.8 l .8 2021-12-09 2021-12-11 Inpatient U GWEN, [facility] CAR [address] [facility] 12:26:00 14:30:00 TOBI 2021-12-09 2021-12-09 Outpatient DUCKWORTH, [facility] ALLEY [address] [facility] 11:59:00 23:59:00 ZOHREH 2021-10-06 2021-10-06 Outpatient GWEN, [facility] CAR [address] [facility] 12:15:00 23:59:00 TOBI 2021-09-11 2021-09-11 Outpatient MONTESINOS, [facility] [id number] 988 [place] 00:00:00 00:00:00 JAVIER [address] 2021-09-01 2021-09-01 Outpatient JEEVAN, [facility] CAR [address] [facility] 09:28:00 23:59:00 MILLY 2021-08-19 2021-08-21 Inpatient GWEN, [facility] CAR [address] [facility] 06:15:00 13:45:00 TOBI 2021-08-07 2021-08-07 Outpatient GWEN, [facility] CAR [address] [facility] 08:44:00 19:30:00 BISWAJIT 2021-07-17 2021-07-17 Outpatient GWEN, [facility] CAR [address] [facility] 13:30:00 23:59:00 BISWAJIT 2021-07-17 2021-07-17 Outpatient MONTESINOS, [facility] [id number] 014 [place] 00:00:00 00:00:00 JAVIER [address] 2021-07-07 2021-07-07 Outpatient GWEN, [facility] CAR [address] [facility] 09:45:00 23:59:00 BISWAJIT 2021-01-09 2021-01-09 Outpatient MONTESINOS, [facility] [id number] [place] 00:00:00 00:00:00 JAVIER [address] 2021-01-09 2021-01-09 Outpatient MONTESINOS, [facility] [id number] [place] 00:00:00 00:00:00 JAVIER [address] 2020-06-10 2020-06-10 Outpatient MONTESINOS, [facility] [id number] 643 [place] 00:00:00 00:00:00 JAVIER [address] 2020-06-10 2020-06-10 Outpatient MONTESINOS, [facility] [id number] 422 [place] 00:00:00 00:00:00 JAVIER [address] 2019-08-31 2019-08-31 Outpatient MONTESINOS, [facility] [id number] [place] 00:00:00 00:00:00 JAVIER [address] Results Test Description Test Time Test Comments Results Result Comments Source Basic metabolic panel 2022-10-16 12:21:00 Test Item Value Reference Range Interpretation Comme nts Glucose (test code = 101 mg/dL 65-139 Non-fa sting reference 2345-7) interval BUN (test code = 3094-0) 27 mg/dL 7-25 H Creatinine (test code = 1.42 mg/dL 0.70-1.22 H 2160-0) eGFR (test code = 27271-1) 49 See_Comment L T he eGFR is based on the CKD-EPI 202 1 equation. To ca lculate the new eGFR fr om a previous Creati nine or Cystatin Tamir t, go to https://www.kid [employer]istian.org /professionals/ kdoqi/g fr%5Fcalculator [Automated mess age] The system ic h generated this result transmitted ref erence range: > OR = 6 0 mL/min/1.73m2. The reference range was not used to int erpret this result as normal/abnormal . BUN/creatinine ratio (test 19 See_Comment [Automated message] code = 3097-3) The system ich generated this result transmitted ref erence range: 6 - 22 ( calc). The reference r mercedes was not used to interpret this result as normal/abnor mal. Sodium (test code = 135 mmol/L 721-503 4882-2) Potassium (test code = 4.8 mmol/L 3.5-5.3 2823-3) Chloride (test code = 102 mmol/L 98-110 2075-0) CO2 (test code = 2027-9) 26 mmol/L 20-32 Calcium (test code = 9.0 mg/dL 8.6-10.3 43845-5) GRANT (test code = GRANT) FASTING:NO FASTING: NO RAC (test code = RAC) Performing Organization Information: Site ID: RGA Name: [employer] Lab Address: [address] [place] [id number] Director: Rafat Hercules Lab Interpretation (test Abnormal code = 05073-9) [facility] [id number] 12:21:00 Test Item Value Reference Range Interpretation Comments Protein (test code 6.5 g/dL 6.1-8.1 = 2885-2) Albumin, S (test 4.2 g/dL 3.6-5.1 code = 1751-7) Globulin, total 2.3 See_Comment [Automated (test code = message] The 13803-5) system which generated this result transmitted reference range : 1.9 - 3.7 g/dL (calc). The reference range was not used to interpret this result as normal/abnormal . Albumin/globulin 1.8 See_Comment [Automated ratio (test code = message] The 114-0) system which generated this result transmitted reference range : 1.0 - 2.5 (calc ). The reference range was not used to interpr et this result as normal/abnormal . Total bilirubin 0.5 mg/dL 0.2-1.2 (test code = 1974-2) Bilirubin direct 0.2 mg/dL See_Comment [Automated (test code = message] The 1967-12) system which generated this result transmitted reference range : < OR = 0.2. The reference range was not used to interpret this result as normal/abnormal . Bilirubin, 0.3 See_Comment [Automated indirect (test message] The code = 1970-06) system which generated this result transmitted reference range : 0.2 - 1.2 mg/dL (calc). The reference range was not used to interpret this result as normal/abnormal . Alkaline 79 U/L 35-144 phosphatase (test code = 6768-6) AST (test code = 34 U/L 10-35 1920-8) ALT (test code = 39 U/L 9-46 1742-6) GRANT (test code = FASTING:NO FASTING: GRANT) NO RAC (test code = Performing RAC) Organization Information: Site ID: [facility] Name: [facility] Lab Address: [address] [place] [address] Director: Rafat Hercules [facility] [id number] 12:21:00 Test Item Value Reference Range Interpretation Comments Ferritin level (test 1165 ng/mL 24-380 H code = 2276-4) GRANT (test code = GRANT) FASTING:NO FASTING: NO RAC (test code = RAC) Performing Organization Information: Site ID: [facility] Name: [facility] Lab Address: [address] [place] [id number] Director: Rafat Hercules Lab Interpretation (test Abnormal code = 14981-1) [place] [id number] 12:21:00 Test Item Value Reference Range Interpretation Comments LDH (test code = 264 U/L 120-250 H 89401-6) GRANT (test code = GRANT) FASTING:NO FASTING: NO RAC (test code = RAC) Performing Organization Information: Site ID: [facility] Name: [facility] Lab Address: [address] [place] [phone] Director: Rafat Hercules Lab Interpretation (test Abnormal code = 25000-0) [id number] 12:21:00 Test Item Value Reference Range Interpretation Comments Fibrinogen (test code 408 mg/dL 175-425 = 3255-7) GRANT (test code = GRANT) FASTING:NO FASTING: NO RAC (test code = RAC) Performing Organization Information: Site ID: [facility] Name: [facility] Address: [address] [place], [place] [id number] [facility] binding [id number] 12:21:00 Test Item Value Reference Range Interpretation Comments Iron level (test 116 See_Comment [Automated code = 2498-4) message] The system which generated this result transmit ang reference range : 50 - 180 mcg/dL . The reference range was not u sed to interpret th is result as normal/abnormal . Iron binding 312 See_Comment [Automated capacity (test message] The code = 2500-7) system which generated this result transmit ang reference range : 250 - 425 mcg/d L (calc). The reference range was not used to interpret this result as normal/abnormal . Iron saturation 37 See_Comment [Automated (test code = message] The 2502-3) system which generated this result transmit ang reference range : 20 - 48 % (calc ). The reference range was not u sed to interpret th is result as normal/abnormal . GRANT (test code = FASTING:NO FASTING: GRANT) NO RAC (test code = Performing RAC) Organization Information: Site ID: [facility] Name: [facility] Address: [address] [place] [id number] Director: Rafat Hercules [facility] metabolic [id number] 12:21:00 Test Item Value Reference Range Interpretation Comments Glucose (test code = 101 mg/dL 65-139 Non-fa sting 2345-7) reference interval BUN (test code = 27 mg/dL 7-25 H 3094-0) Creatinine (test 1.42 mg/dL 0.70-1.22 H code = 2160-0) eGFR (test code = 49 See_Comment L The eGFR i s based 94814-3) on the CKD-EPI 2020 equation. To calculate the n ew eGFR from a previous Creatinine or Cystatin Cresul t, go to [email or web address] ca lculator [Automated message] The system which generated this result transmitted reference range : > OR = 60 mL/min/1.73m2. The reference range was not used to interpr et this result as normal/abnormal . BUN/creatinine ratio 19 See_Comment [Autom ated (test code = 3097-3) message ] The system which generated this result transmitted reference range : 6 - 22 (calc). The reference range was not used to interpr et this result as normal/abnormal . Sodium (test code = 135 mmol/L 969-578 9356-2) Potassium (test code 4.8 mmol/L 3.5-5.3 = 2823-3) Chloride (test code 102 mmol/L 98-110 = 2075-0) CO2 (test code = 26 mmol/L 20-32 2027-9) Calcium (test code = 9.0 mg/dL 8.6-10.3 37634-8) GRANT (test code = FASTING:NO GRANT) FASTING: NO RAC (test code = Performing RAC) Organization Information: Site ID: [facility] Name: [employer] Address: [address] [place] [id number] Director: Rafat Hercules [facility] Interpretation Abnormal (test code = 29380-9) [facility] function [id number] 12:21:00 Test Item Value Reference Range Interpretation Comments Protein (test code 6.5 g/dL 6.1-8.1 = 2885-2) Albumin, S (test 4.2 g/dL 3.6-5.1 code = 1751-7) Globulin, total 2.3 See_Comment [Automated (test code = message] The 29856-9) system which generated this result transmitted reference range : 1.9 - 3.7 g/dL (calc). The reference range was not used to interpret this result as normal/abnormal . Albumin/globulin 1.8 See_Comment [Automated ratio (test code = message] The 532) system which generated this result transmitted reference range : 1.0 - 2.5 (calc ). The reference range was not used to interpr et this result as normal/abnormal . Total bilirubin 0.5 mg/dL 0.2-1.2 (test code = 1975-2) Bilirubin direct 0.2 mg/dL See_Comment [Automated (test code = message] The 1967-12) system which generated this result transmitted reference range : < OR = 0.2. The reference range was not used to interpret this result as normal/abnormal . Bilirubin, 0.3 See_Comment [Automated indirect (test message] The code = 1970-06) system which generated this result transmitted reference range : 0.2 - 1.2 mg/dL (calc). The reference range was not used to interpret this result as normal/abnormal . Alkaline 79 U/L 35-144 phosphatase (test code = 6768-6) AST (test code = 34 U/L 10-35 1920-8) ALT (test code = 39 U/L 9-46 1742-6) GRANT (test code = FASTING:NO FASTING: GRANT) NO RAC (test code = Performing RAC) Organization Information: Site ID: [facility] Name: [facility] Address: [address] [place] [address] Director: Rafat Hercules [facility]line[facility]ritin [id number] 12:21:00 Test Item Value Reference Range Interpretation Comments Ferritin level (test 1165 ng/mL 24-380 H code = 2276-4) GRANT (test code = GRANT) FASTING:NO FASTING: NO RAC (test code = RAC) Performing Organization Information: Site ID: [facility] Name: [facility] Address: [address] [place] [address] Director: Rafat Hercules [facility] Interpretation (test Abnormal code = 98468-3) [place] [id number] 12:21:00 Test Item Value Reference Range Interpretation Comments LDH (test code = 264 U/L 120-250 H 59631-3) GRANT (test code = GRANT) FASTING:NO FASTING: NO RAC (test code = RAC) Performing Organization Information: Site ID: [facility] Name: [facility] Address: [address] [place] [address] Director: Rafat Hercules [facility] Interpretation (test Abnormal code = 07634-0) [facility]lineAfhmxvtwFspqwqlrki3549-85-87 12:21:00 Test Item Value Reference Range Interpretation Comments Fibrinogen (test code 408 mg/dL 175-425 = 3255-7) GRANT (test code = GRANT) FASTING:NO FASTING: NO RAC (test code = RAC) Performing Organization Information: Site ID: [facility] Name: [facility] Address: [address] [place] [id number] Director: Payette Nahed [facility] iron binding [id number] 12:21:00 Test Item Value Reference Range Interpretation Comments Iron level (test 116 See_Comment [Automated code = 2498-4) message] The system which generated this result transmit ang reference range : 50 - 180 mcg/dL . The reference range was not u sed to interpret th is result as normal/abnormal . Iron binding 312 See_Comment [Automated capacity (test message] The code = 2500-7) system which generated this result transmit ang reference range : 250 - 425 mcg/d L (calc). The reference range was not used to interpret this result as normal/abnormal . Iron saturation 37 See_Comment [Automated (test code = message] The 2502-3) system which generated this result transmit ang reference range : 20 - 48 % (calc ). The reference range was not u sed to interpret th is result as normal/abnormal . GRANT (test code = FASTING:NO FASTING: GRANT) NO RAC (test code = Performing RAC) Organization Information: Site ID: [facility] Name: [facility] Address: [address] [place] [phone] Director: Rafat Nahed [facility] metabolic [id number] 12:21:00 Test Item Value Reference Range Interpretation Comments Glucose (test code = 101 mg/dL 65-139 Non-fa sting 2345-7) reference interval BUN (test code = 27 mg/dL 7-25 H 3094-0) Creatinine (test 1.42 mg/dL 0.70-1.22 H code = 2160-0) eGFR (test code = 49 See_Comment L The eGFR i s based 45082-6) on the CKD-EPI 2020 equation. To calculate the n ew eGFR from a previous Creatinine or Cystatin Cresul t, go to [email or web address] ca lculator [Automated message] The system which generated this result transmitted reference range : > OR = 60 mL/min/1.73m2. The reference range was not used to interpr et this result as normal/abnormal . BUN/creatinine ratio 19 See_Comment [Autom ated (test code = 3097-3) message ] The system which generated this result transmitted reference range : 6 - 22 (calc). The reference range was not used to interpr et this result as normal/abnormal . Sodium (test code = 135 mmol/L 371-472 6890-2) Potassium (test code 4.8 mmol/L 3.5-5.3 = 2823-3) Chloride (test code 102 mmol/L 98-110 = 2075-0) CO2 (test code = 26 mmol/L 20-32 2027-9) Calcium (test code = 9.0 mg/dL 8.6-10.3 49466-1) GRANT (test code = FASTING:NO GRANT) FASTING: NO RAC (test code = Performing RAC) Organization Information: Site ID: [facility] Name: [employer] Address: [address] [place] [phone] Director: Rafat Hercules [facility] Interpretation Abnormal (test code = 17687-0) [facility] function [id number] 12:21:00 Test Item Value Reference Range Interpretation Comments Protein (test code 6.5 g/dL 6.1-8.1 = 2885-2) Albumin, S (test 4.2 g/dL 3.6-5.1 code = 175-7) Globulin, total 2.3 See_Comment [Automated (test code = message] The ) system which generated this result transmitted reference range : 1.9 - 3.7 g/dL (calc). The reference range was not used to interpret this result as normal/abnormal . Albumin/globulin 1.8 See_Comment [Automated ratio (test code = message] The ) system which generated this result transmitted reference range : 1.0 - 2.5 (calc ). The reference range was not used to interpr et this result as normal/abnormal . Total bilirubin 0.5 mg/dL 0.2-1.2 (test code = 1974-) Bilirubin direct 0.2 mg/dL See_Comment [Automated (test code = message] The 1967-12) system which generated this result transmitted reference range : < OR = 0.2. The reference range was not used to interpret this result as normal/abnormal . Bilirubin, 0.3 See_Comment [Automated indirect (test message] The code = 1970-06) system which generated this result transmitted reference range : 0.2 - 1.2 mg/dL (calc). The reference range was not used to interpret this result as normal/abnormal . Alkaline 79 U/L 35-144 phosphatase (test code = 6768-6) AST (test code = 34 U/L 10-35 1920-8) ALT (test code = 39 U/L 9-46 1742-6) GRANT (test code = FASTING:NO FASTING: GRANT) NO RAC (test code = Performing RAC) Organization Information: Site ID: [facility] Name: [employer] Address: [address] [place] [address] Director: Rafat Hercules [facility] ShorelineFerritin [id number] 12:21:00 Test Item Value Reference Range Interpretation Comments Ferritin level (test 1165 ng/mL 24-380 H code = 2276-4) GRANT (test code = GRANT) FASTING:NO FASTING: NO RAC (test code = RAC) Performing Organization Information: Site ID: [facility] Name: [facility] Address: [address] [place] [address] Director: Rafat Hercules [facility] Interpretation (test Abnormal code = 75111-8) [place] [id number] 12:21:00 Test Item Value Reference Range Interpretation Comments LDH (test code = 264 U/L 120-250 H 38835-2) GRANT (test code = GRANT) FASTING:NO FASTING: NO RAC (test code = RAC) Performing Organization Information: Site ID: [facility] Name: [facility] Address: [address] [place] [address] Director: Rafat Hercules [facility] Interpretation (test Abnormal code = 41869-5) [facility] MarshallQzvxnjyuIhovbybutb9640-11-89 12:21:00 Test Item Value Reference Range Interpretation Comments Fibrinogen (test code 408 mg/dL 175-425 = 3255-7) GRANT (test code = GRANT) FASTING:NO FASTING: NO RAC (test code = RAC) Performing Organization Information: Site ID: [facility] Name: [facility] Address: [address] [place] [phone] Director: Rafat Hercules [facility] iron binding [id number] 12:21:00 Test Item Value Reference Range Interpretation Comments Iron level (test 116 See_Comment [Automated code = 2498-4) message] The system which generated this result transmit ang reference range : 50 - 180 mcg/dL . The reference range was not u sed to interpret th is result as normal/abnormal . Iron binding 312 See_Comment [Automated capacity (test message] The code = 2500-7) system which generated this result transmit ang reference range : 250 - 425 mcg/d L (calc). The reference range was not used to interpret this result as normal/abnormal . Iron saturation 37 See_Comment [Automated (test code = message] The 2502-3) system which generated this result transmit ang reference range : 20 - 48 % (calc ). The reference range was not u sed to interpret th is result as normal/abnormal . GRANT (test code = FASTING:NO FASTING: GRANT) NO RAC (test code = Performing RAC) Organization Information: Site ID: [facility] Name: [facility] Address: [address] [place] [phone] Director: Rafat Hercules [facility] [id number] 15:30:00 Test Item Value Reference Range Interpretation Comments Misc test name 54 GMT BONE (test code = MARROW 2566) Misc test see comment FINAL result (test code = 1730) Zoya t: RAMAKRISHNA RENDONB: 1940ex: M alePatient Identifiers: [id number] , [id number] Number (FIN): [id number] ction Date: 05/25/2022 11:02:00 AMPHYSICIAN: THANIA CURRIE Myeloid Malignancies Mu tation Panel by Next G eneration Sequencing [facility] test code 9236804 Myeloid Malignancy Prop osed Diagnosis Anemi a - - - - - - - - - - - - - - - - - - - - - - - - - - - - - - Myeloid Maligna ncies Panel Specimen Bone Marrow - - - - - - - - - - - - - - - - - - - - - - - - - - - - - - Myeloid Malignancies Pa mayur Interp See Note Myeloi d Malignancies Mu tation Panel NGS Submi tted diagnosis or di agnosis under considera tion for variant interpr etation: Anemia TIER 1: Variants of Known Clinic al Significance in Hematologic Mal ignancies 1. U2AF1 c.101C >T, p.Ymn16Fhl (NM_006758.3)VA F: 39.9%U2AF1 (als o known as U2AF35) encodes a component of th e RNA-splicing ma chinery known as the sp liceosome. Somatic mutatio ns of U2AF1 are found in 7-16% of patients wit h myelodysplastic syndromes (MDS) (1) (3) ( 5) (6). Most U2AF1 muta tions affect codons S er34 or Jde331 (4). Thi s particular miss ense mutation has be en reported in mye loid malignancies (2 ). In MDS, U2AF1 mutations correlate with more rapid transformation to acute myeloid leukemi a (AML) (5). TIER 2: Va riants of Unknown Clinica l Significance in Hematologic Mal ignancies None found Refe rences1: Tanisha R, José mendoza KE, Ana Laura BA et a l, Validation of a prognostic mode l and the impact of mutat ions in patients with l ower-risk myelodysplastic syndromes. J Cl in Oncol 2012. PMID:2286 90785: COSMIC: [email or web address]://cancer. [place].ac. [place]/cosmic3: Madhav Birch, Jodi O, Alisson Gandhi V et al, Mutation s affecting mRNA splicing define distinct clinical phenotypes and correlate with patient ou tcome in myelodysplastic syndromes. Kallie alonso 2012. PMID:355803196: Douglas CA, Nickolas G, Da A, The changing mutati onal landscape of [place] myeloid leukemi a and myelodysplastic syndrome. Mol Cancer Res 2013. PMID:942237191: Konrad F, Titi S, Maryana Kim et al, Frequency a nd prognostic impa ct of mutations in SR SF2, U2AF1, and ZRSR 2 in patients with myelodysplastic syndromes. Kallie alonso 2012. PMID:105670837: Long K, Mane M, Sh bala Y et al, Frequent pathway mutations of sp licing machinery in myelodysplasia. Nature 2011. PMID:2190 9114 This result has been reviewed and approved by Robb Aguila. Low coverage region s:Listed below are regio ns where the average seq uencing depth (number o f times a particular nucl eotide is sequenced) in a t least 20% of the jclohc-hc-xoitb est is less than our s tringent cutoff of 300. Sensitivity for detection of low allelic frequency variants may be reduced in areas with r educed depth of covera ge.None BACKGROUND INFO RMATION: Myeloid Maligna ncies Mutation Panel by Next Generation SequencingCHARA CTERISTICS : Myeloid malig nancies are clonal diso rders of hematopoietic s tem and progenitor cell s that include myelody splastic syndromes (MDSs ), myeloproliferat mery neoplasms (MPNs ), myelodysplastic /myeloprol iferative neopl asms (MDS/MPNs), and acute myeloid leukemi a (AML). Recent studies have identified recu rrently mutated genes w ith diagnostic and/ or prognostic impa ct in myeloid maligna ncies. The presence of cer tain mutations may i nform clinical manage ment. This multigene panel by massively paral lel sequencing (Cache IQ t generation popexpert encing) is a more cost-eff ective approach when c ompared to the cost of mul tiple single gene martin ts. This test can be use d to complement the morphologic and cytogenetic wor kup of myeloid maligna ncies. GENES TESTED: A NKRD26; ASXL1; ASXL2; B COR; BCORL1; BRAF; C ALR; CBL; CBLB; CEBPA; CS F3R; CUX1*; DDX41; D NMT1*; DNMT3A; ELANE; ETNK1; ETV6; EZH2; FBX W7; FLT3; GATA1; GATA2; G CATALINA; HNRNPK; IDH1; I DH2; IL7R; JAK1; JAK2; MIKE 3; KDM6A*; KIT; KMT2A; KRA S; LUC7L2; MPL; NOTCH1; QUALITY ASSURANCE SUPERVISOR BODY M1*; NRAS; NSD1; PHF6; PIG A; PPM1D; FZTP52J; PRPF8; PTPN11; RAD21; RUNX1; S AMD9; SAMD9L; SETBP1; SF3B1; SH2B3; SMC1A; S MC3; SRSF2; STAG2; S TAT3; STAT5B*; SUZ12* ; TET2; TP53; U2AF1; U2 AF2; UBA1; WT1; ZRSR2.*One or more exons of the pr eferred transcript were not covered by sequ encing for the indicated g courtney; see limitations sec tion below. METHODOL OGY: Genomic DNA was isolated from peripheral blood or bone marrow and then enriched for th e targeted exonic regions of the tested genes. T he variant status of the t argeted genes was deter mined by massively paral lel sequencing. The hg19 (GRCh37) human genome assembly was us ed as a reference for i dentifying genetic variant s. Clinically sign ificant variants and va riants of uncertain signi ficance called in the p referred transcript are reported. LIMITATIONS: Va riants outside the tar geted regions or belo w the limit of detect ion are not identified. Variants in regions that are not included in the preferred transcript for the targeted genes are not detected. In so me cases, variants may no t be identified due to technical limit ations in the presence of pseudogenes or in repetitive or h omologous regions. It is also possible some insertion/delet ion variants may no t be identified. Macario ign or likely benign v ariants in the preferred t ranscript are not reporte d.The following regio ns were not sequenced d ue to technical limit ations of the assay:CUX1 (NM_181552) exo n 09LQFK4 (NM_001130823) exon 5KDM6A (NM_0012 16573) exon 13NPM1 (NM _002520) exon 2AAIN1G (N M_012448) exons 6-9SUZ12 (NM_015355) exo ns 1-9 LIMIT OF DETECT ION (LOD): 5 percent varia nt allele fraction (VAF) for single nucleotide vari ants (SNV) and small varia nts less than 24 base pa irs (bp). Variants greate r than 24bp may be det ected at LOD, but the an alytical sensitivity may be reduced. ANALYT ICAL SENSITIVITY: Th e positive percent agreeme nt (PPA) estimate for th e respective vari ant classes (with 9 5 percent credibility reg ion) are listed below. G gema included on thi s test are a subset of a l arger methods-based v alidation from which the PPA values are derived.Sin gle nucleotide vari ants (SNVs): 96.9 pe rcent (95.1-98.1 percent)Inserti ons/duplic ations (1-24bp) : 98.1 percent (95.5-9 9.3 percent)Inserti ons/duplic ations (greater than 24bp): greater than 99 percent (92.9-1 00.0 percent)Deletio ns (1-24bp): 96.7 percent (92.8-98.7 percent)Deletio ns (greater than 2 4bp): 90 percent (79.5-9 6.1 percent)Multinu cleotide variants (MNVs) : 97 percent (93.0-9 9.0 percent)FLT3 IT Ds: Greater than 99 percent (97.1-100.0 per cent) CLINICAL DISCLA ARIEL: Results of this test must always be inter preted within the cont ext of clinical findin gs and other relevant data and should not be u sed alone for a diagnosis of malignancy. Thi s test is not intended to detect minimal residua l disease. This test was d larryoped and its perform ance characteristics determined by [facility]. I t has not been cleared or approved by the [place] d and Drug Administration. This test was performed i n a CLIA-certified laboratory and is intended for clinical purpos es. - - - - - - - - - - - - - - - - - - - - - - - - - - - - - - EER Myeloid Malignancies Pa mayur by NGS See Note Author remediosmaya individuals can access the [facility] Jena ed Report using the [employer] link: [email or web address] =========Test p erformed by:[facility] [place], [place] [address] GRANT (test code 54 GMT BONE = GRANT) MARROW [facility] [id number] 15:30:00 Test Item Value Reference Range Interpretation Comments Mis test name 54 GMT BONE (test code = MARROW 2566) Misc test see comment FINAL result (test code = 1730) Melanieen t: RAMAKRISHNA RENDONB: 1940ex: Jeet alePatient Identifiers: [id number] , [id number] Number (FIN): [id number] ction Date: 05/25/2022 11:02:00 AMPHYSICIAN: THANIA CURRIE Myeloid Malignancies Mu tation Panel by Trevor G enesvin Sequencing [facility] test code [id number] Myeloid Malignancy Prop osed Diagnosis Anemi a - - - - - - - - - - - - - - - - - - - - - - - - - - - - - - Myeloid Maligna ncies Panel Specimen Bone Marrow - - - - - - - - - - - - - - - - - - - - - - - - - - - - - - Myeloid Malignancies Pa mayur Interp See Note Myeloi d Malignancies Mu tation Panel NGS Submi tted diagnosis or di agnosis under considera tion for variant interpr etation: Anemia TIER 1: Variants of Known Clinic al Significance in Hematologic Mal ignancies 1. U2AF1 c.101C >T, p.Gnx87Kxk (NM_006758.3)VA F: 39.9%U2AF1 (als o known as U2AF35) encodes a component of th e RNA-splicing ma chinery known as the sp liceosome. Somatic mutatio ns of U2AF1 are found in 7-16% of patients wit h myelodysplastic syndromes (MDS) (1) (3) ( 5) (6). Most U2AF1 muta tions affect codons S er34 or Gbo844 (4). Thi s particular miss ense mutation has be en reported in mye loid malignancies (2 ). In MDS, U2AF1 mutations correlate with more rapid transformation to acute myeloid leukemi a (AML) (5). TIER 2: Va riants of Unknown Clinica l Significance in Hematologic Mal ignancies None found Refe rences1: Tanisha R, José mendoza KE, Ana Laura CASTILLO et a l, Validation of a prognostic mode l and the impact of mutat ions in patients with l ower-risk myelodysplastic syndromes. J Cl in Oncol 2012. PMID:2286 02693: COSMIC: [email or web address]://cancer. [place].ac. uk/cosmic3: Madhav montano F, Jodi O, Alisson Gandhi V et al, Mutation s affecting mRNA splicing define distinct clinical phenotypes and correlate with patient ou tcome in myelodysplastic syndromes. Jorgeo d 2012. PMID:265199829: Douglas CA, Nickolas G, Natitas-Raulama A, The changing mutati onal landscape of ac [place] myeloid leukemi a and myelodysplastic syndrome. Mol Cancer Res 2013. PMID:557429162: Konrad F, Titi S, Maryana Kim et al, Frequency a nd prognostic impa ct of mutations in SR SF2, U2AF1, and ZRSR 2 in patients with myelodysplastic syndromes. Bloo d 2012. PMID:299227857: Reynaldo Mauricioada M, Sh bala Y et al, Frequent pathway mutations of sp licing machinery in myelodysplasia. Nature 2010. PMID:2190 9114 This result has been reviewed and approved by Robb Aguila. Low coverage region s:Listed below are regio ns where the average seq uencing depth (number o f times a particular nucl eotide is sequenced) in a t least 20% of the qvfeze-je-ttaxl est is less than our s tringent cutoff of 300. Sensitivity for detection of low allelic frequency variants may be reduced in areas with r educed depth of covera ge.None BACKGROUND INFO RMATION: Myeloid Maligna ncies Mutation Panel by Next Generation SequencingCHARA CTERISTICS : Myeloid malig nancies are clonal diso rders of hematopoietic s tem and progenitor cell s that include myelody splastic syndromes (MDSs ), myeloproliferat mery neoplasms (MPNs ), myelodysplastic /myeloprol iferative neopl asms (MDS/MPNs), and acute myeloid leukemi a (AML). Recent studies have identified recu rrently mutated genes w ith diagnostic and/ or prognostic impa ct in myeloid maligna ncies. The presence of cer tain mutations may i nform clinical manage ment. This multigene panel by massively paral lel sequencing (Cache IQ t generation [employer]) is a more cost-eff ective approach when c ompared to the cost of mul tiple single gene martin ts. This test can be use d to complement the morphologic and cytogenetic wor kup of myeloid maligna ncies. GENES TESTED: A NKRD26; ASXL1; ASXL2; B COR; BCORL1; BRAF; C ALR; CBL; CBLB; CEBPA; CS F3R; CUX1*; DDX41; D NMT1*; DNMT3A; ELANE; ETNK1; ETV6; EZH2; FBX W7; FLT3; GATA1; GATA2; G CATALINA; HNRNPK; IDH1; I DH2; IL7R; JAK1; JAK2; MIKE 3; KDM6A*; KIT; KMT2A; KRA S; LUC7L2; MPL; NOTCH1; QUALITY ASSURANCE SUPERVISOR BODY M1*; NRAS; NSD1; PHF6; PIG A; PPM1D; ZIWS98Q; PRPF8; PTPN11; RAD21; RUNX1; S AMD9; SAMD9L; SETBP1; SF3B1; SH2B3; SMC1A; S MC3; SRSF2; STAG2; S TAT3; STAT5B*; SUZ12* ; TET2; TP53; U2AF1; U2 AF2; UBA1; WT1; ZRSR2.*One or more exons of the pr eferred transcript were not covered by sequ encing for the indicated g courtney; see limitations sec tion below. METHODOL OGY: Genomic DNA was isolated from peripheral blood or bone marrow and then enriched for th e targeted exonic regions of the tested genes. T he variant status of the t argeted genes was deter mined by massively paral lel sequencing. The hg19 (GRCh37) human genome assembly was us ed as a reference for i dentifying genetic variant s. Clinically sign ificant variants and va riants of uncertain signi ficance called in the p referred transcript are reported. LIMITATIONS: Va riants outside the tar geted regions or belo w the limit of detect ion are not identified. Variants in regions that are not included in the preferred transcript for the targeted genes are not detected. In so me cases, variants may no t be identified due to technical limit ations in the presence of pseudogenes or in repetitive or h omologous regions. It is also possible some insertion/delet ion variants may no t be identified. Macario ign or likely benign v ariants in the preferred t ranscript are not reporte d.The following regio ns were not sequenced d ue to technical limit ations of the assay:CUX1 (NM_181552) exo n 17QSRP4 (NM_[id number]) exon 5KDM6A (NM_0012 91686) exon 13NPM1 (NM _002520) exon 6TMDZ6J (N M_012448) exons 6-9SUZ12 (NM_015355) exo ns 1-9 LIMIT OF DETECT ION (LOD): 5 percent varia nt allele fraction (VAF) for single nucleotide vari ants (SNV) and small varia nts less than 24 base pa irs (bp). Variants greate r than 24bp may be det ected at LOD, but the an alytical sensitivity may be reduced. ANALYT ICAL SENSITIVITY: Th e positive percent agreeme nt (PPA) estimate for th e respective vari ant classes (with 9 5 percent credibility reg ion) are listed below. G gema included on thi s test are a subset of a l arger methods-based v alidation from which the PPA values are derived.Sin gle nucleotide vari ants (SNVs): 96.9 pe rcent (95.1-98.1 percent)Inserti ons/duplic ations (1-24bp) : 98.1 percent (95.5-9 9.3 percent)Inserti ons/duplic ations (greater than 24bp): greater than 99 percent (92.9-1 00.0 percent)Deletio ns (1-24bp): 96.7 percent (92.8-98.7 percent)Deletio ns (greater than 2 4bp): 90 percent (79.5-9 6.1 percent)Multinu cleotide variants (MNVs) : 97 percent (93.0-9 9.0 percent)FLT3 IT Ds: Greater than 99 percent (97.1-100.0 per cent) CLINICAL DISCLA ARIEL: Results of this test must always be inter preted within the cont ext of clinical findin gs and other relevant data and should not be u sed alone for a diagnosis of malignancy. Rosario s test is not intended to detect minimal residua l disease. This test was d maria teresad and its perform ance characteristics determined by [facility]. I t has not been cleared or approved by the [place] d and Drug Administration. This test was performed i n a CLIA-certified laboratory and is intended for clinical purpos es. - - - - - - - - - - - - - - - - - - - - - - - - - - - - - - EER Myeloid Malignancies Pa mayur by NGS See Note Author marito individuals can access the [facility] Enhanc ed Report using the [employer] link: [email or web address] =========Test p erformed by:[facility] [id number] [place], [place] [address] GRANT (test code 54 GMT BONE = GRANT) MARROW [facility] [id number] 15:30:00 Test Item Value Reference Range Interpretation Comments Mis test name 54 GMT BONE (test code = MARROW 2566) Mis test see comment FINAL result (test code = 1730) Patien t: RAMAKRISHNA RENDONB: 1940ex: MalePatient Cory ntifiers: [id number] , [id number] Number (FIN): [id number] ction Date: 05/25/2022 11:02:00 AMPHYSICIAN: THANIA CURRIE Myeloid Malignancies Mu tation Panel by Next G eneration Sequencing [facility] test code [id number] Myeloid Malignancy Prop osed Diagnosis Anemi a - - - - - - - - - - - - - - - - - - - - - - - - - - - - - - Myeloid Maligna ncies Panel Specimen Bone Marrow - - - - - - - - - - - - - - - - - - - - - - - - - - - - - - Myeloid Malignancies Pa mayur Interp See Note Myeloi d Malignancies Mu tation Panel NGS Submi tted diagnosis or di agnosis under considera tion for variant interpr etation: Anemia TIER 1: Variants of Known Clinic al Significance in Hematologic Mal ignancies 1. U2AF1 c.101C >T, p.Oac33Dhv (NM_006758.3)VA F: 39.9%U2AF1 (als o known as U2AF35) encodes a component of th e RNA-splicing ma chinery known as the sp liceosome. Somatic mutatio ns of U2AF1 are found in 7-16% of patients wit h myelodysplastic syndromes (MDS) (1) (3) ( 5) (6). Most U2AF1 muta tions affect codons S er34 or Zmu973 (4). Thi s particular miss ense mutation has be en reported in mye loid malignancies (2 ). In MDS, U2AF1 mutations correlate with more rapid transformation to acute myeloid leukemi a (AML) (5). TIER 2: Va riants of Unknown Clinica l Significance in Hematologic Mal ignancies None found Refe rences1: Tanisha R, José mendoza KE, Ana Laura BA et a l, Validation of a prognostic mode l and the impact of mutat ions in patients with l ower-risk myelodysplastic syndromes. J Cl in Oncol 2012. PMID:2286 60119: COSMIC: https://cancer. paola.ac. uk/cosmic3: Madhav montano F, Jodi O, Alisson Gandhi V et al, Mutation s affecting mRNA splicing define distinct clinical phenotypes and correlate with patient ou tcome in myelodysplastic syndromes. Kallie alonso 2012. PMID:967025490: Douglas CA, Nickolas G, Quintas-Raulama A, The changing mutati onal landscape of ac [place] myeloid leukemi a and myelodysplastic syndrome. Mol Cancer Res 2013. PMID:371132034: Konrad F, Titi S, Maryana Kim et al, Frequency a nd prognostic impa ct of mutations in SR SF2, U2AF1, and ZRSR 2 in patients with myelodysplastic syndromes. Jorgeo d 2012. PMID:591802232: Long Mcgrath, Mane M, Sh bala Y et al, Frequent pathway mutations of sp licing machinery in myelodysplasia. Nature 2011. PMID:2196 9793 This result has been reviewed and approved by Robb Aguila. Low coverage region s:Listed below are regio ns where the average seq uencing depth (number o f times a particular nucl eotide is sequenced) in a t least 20% of the ehacgo-tz-nhazd est is less than our s tringent cutoff of 300. Sensitivity for detection of low allelic frequency variants may be reduced in areas with r educed depth of covera ge.None BACKGROUND INFO RMATION: Myeloid Maligna ncies Mutation Panel by Next Generation SequencingCHARA CTERISTICS : Myeloid malig nancies are clonal diso rders of hematopoietic s tem and progenitor cell s that include myelody splastic syndromes (MDSs ), myeloproliferat mery neoplasms (MPNs ), myelodysplastic /myeloprol iferative neopl asms (MDS/MPNs), and acute myeloid leukemi a (AML). Recent studies have identified recu rrently mutated genes w ith diagnostic and/ or prognostic impa ct in myeloid maligna ncies. The presence of cer tain mutations may i nform clinical manage ment. This multigene panel by massively paral lel sequencing (nex t generation sequ encing) is a more cost-eff ective approach when c ompared to the cost of mul tiple single gene martin ts. This test can be use d to complement the morphologic and cytogenetic wor kup of myeloid maligna ncies. GENES TESTED: A NKRD26; ASXL1; ASXL2; B COR; BCORL1; BRAF; C ALR; CBL; CBLB; CEBPA; CS F3R; CUX1*; DDX41; D NMT1*; DNMT3A; ELANE; ETNK1; ETV6; EZH2; FBX W7; FLT3; GATA1; GATA2; G CATALINA; HNRNPK; IDH1; I DH2; IL7R; JAK1; JAK2; MIKE 3; KDM6A*; KIT; KMT2A; KRA S; LUC7L2; MPL; NOTCH1; QUALITY ASSURANCE SUPERVISOR BODY M1*; NRAS; NSD1; PHF6; PIG A; PPM1D; JAVH38M; PRPF8; PTPN11; RAD21; RUNX1; S AMD9; SAMD9L; SETBP1; SF3B1; SH2B3; SMC1A; S MC3; SRSF2; STAG2; S TAT3; STAT5B*; SUZ12* ; TET2; TP53; U2AF1; U2 AF2; UBA1; WT1; ZRSR2.*One or more exons of the pr eferred transcript were not covered by sequ encing for the indicated g courtney; see limitations sec tion below. METHODOL OGY: Genomic DNA was isolated from peripheral blood or bone marrow and then enriched for th e targeted exonic regions of the tested genes. T he variant status of the t argeted genes was deter mined by massively paral lel sequencing. The hg19 (GRCh37) human genome assembly was us ed as a reference for i dentifying genetic variant s. Clinically sign ificant variants and va riants of uncertain signi ficance called in the p referred transcript are reported. LIMITATIONS: Va riants outside the tar geted regions or belo w the limit of detect ion are not identified. Variants in regions that are not included in the preferred transcript for the targeted genes are not detected. In so me cases, variants may no t be identified due to technical limit ations in the presence of pseudogenes or in repetitive or h omologous regions. It is also possible some insertion/delet ion variants may no t be identified. Macario ign or likely benign v ariants in the preferred t ranscript are not reporte d.The following regio ns were not sequenced d ue to technical limit ations of the assay:CUX1 (NM_[id number]) exo n 06JUGT1 (NM_[id number]) exon 5KDM6A (NM_0012 31899) exon 13NPM1 (NM _002520) exon 4PWVQ8F (N M_[id number]) exons 6-9SUZ12 (NM_015355) exo ns 1-9 LIMIT OF DETECT ION (LOD): 5 percent varia nt allele fraction (VAF) for single nucleotide vari ants (SNV) and small varia nts less than 24 base pa irs (bp). Variants greate r than 24bp may be det ected at LOD, but the an alytical sensitivity may be reduced. ANALYT ICAL SENSITIVITY: Th e positive percent agreeme nt (PPA) estimate for th e respective vari ant classes (with 9 5 percent credibility reg ion) are listed below. G gema included on thi s test are a subset of a l arger methods-based v alidation from which the PPA values are derived.Sin gle nucleotide vari ants (SNVs): 96.9 pe rcent (95.1-98.1 percent)Inserti ons/duplic ations (1-24bp) : 98.1 percent (95.5-9 9.3 percent)Inserti ons/duplic ations (greater than 24bp): greater than 99 percent (92.9-1 00.0 percent)Deletio ns (1-24bp): 96.7 percent (92.8-98.7 percent)Deletio ns (greater than 2 4bp): 90 percent (79.5-9 6.1 percent)Multinu cleotide variants (MNVs) : 97 percent (93.0-9 9.0 percent)FLT3 IT Ds: Greater than 99 percent (97.1-100.0 per cent) CLINICAL DISCLA ARIEL: Results of this test must always be inter preted within the cont ext of clinical findin gs and other relevant data and should not be u sed alone for a diagnosis of malignancy. Thi s test is not intended to detect minimal residua l disease. This test was d delicia and its perform ance characteristics determined by [facility]. I t has not been cleared or approved by the U.[place] d and Drug Administration. This test was performed i n a CLIA-certified laboratory and is intended for clinical purpos es. - - - - - - - - - - - - - - - - - - - - - - - - - - - - - - EER Myeloid Malignancies Pa mayur by NGS See Note Author marito individuals can access the [facility] Enhanc ed Report using the ALTO CINCOo wing link: [email or web address] =========Test p erformed by:[employer] [place], [place] [address] GRANT (test code 54 GMT BONE = GRANT) [facility] [id number] 18:45:57 Test Item Value Reference Range Interpretation Comments Case number (test code = [id number]) Surgical pathology See link below for report (test code = PDF Lab Report 7178) Result status (test code This is Final Report = [id number]) for [id number] [facility] [id number] 18:45:57 Test Item Value Reference Range Interpretation Comments Case number (test code = [id number]) Surgical pathology See link below for report (test code = PDF Lab Report 2255) Result status (test code This is Final Report = [id number]) for [id number] [facility] [id number] 18:45:57 Test Item Value Reference Range Interpretation Comments Case number (test code = [id number]) Surgical pathology See link below for report (test code = PDF Lab Report 2255) Result status (test code This is Final Report = [id number]) for [id number] [facility] cmfeavyfge7184-08-52 18:35:51 Test Item Value Reference Range Interpretation Comments Case number (test code = [id number]) Flow cytometry evaluation See link below for PDF (test code = 9464526) PDF Lab Report [facility] [id number] 18:35:51 Test Item Value Reference Range Interpretation Comments Case number (test code = [id number]) Flow cytometry evaluation See link below for PDF (test code = 7587243) PDF Lab Report [facility] [id number] 18:35:51 Test Item Value Reference Range Interpretation Comments Case number (test code = [id number]) Flow cytometry evaluation See link below for PDF (test code = 8625840) PDF Lab Report [facility] marrow [id number] 17:47:00 Test Item Value Reference Range Interpretation Comments Bone marrow tray (test code = 989) DONE [facility] marrow [id number] 17:47:00 Test Item Value Reference Range Interpretation Comments Bone marrow tray (test code = 989) DONE [facility] marrow [id number] 17:47:00 Test Item Value Reference Range Interpretation Comments Bone marrow tray (test code = 989) DONE [facility]lineVitamin B12 [id number] 16:52:00 Test Item Value Reference Range Interpretation Comments Vitamin B12 (test code = 1359 pg/mL 200-1100 H 2132-9) RAC (test code = RAC) Performing Organization Information: Site ID: RGA Name: [employer] Address: [address] [place] [address] Director: Rafat Hercules Lab Interpretation (test Abnormal code = 76147-6) [facility]lineFolate [id number] 16:52:00 Test Item Value Reference Range Interpretation Comments Folate (test 11.8 ng/mL Reference Rang e code = 2284-8) Low: <3.4 Borderline: 3.4-5.4 Normal: >5.4 RAC (test code Performing = RAC) Organization Information: Site ID: RGA Name: [facility] Address: [address] [place] [address] Director: Rafat Hercules [facility]lineVitamin B6 level, [id number] 16:52:00 Test Item Value Reference Range Interpretation Comments Vitamin B6 5.7 ng/mL 2.1-21.7 (Note)VITAMIN (test code = SUPPLEMENTATION 2900-9) WITHIN 24 HOURS PRIOR TO BLOOD DRAW M AY AFFECT THE ACCU RACY OF RESULTS. THI S TEST WAS DEVELOPED A ND ITS ANALYTICAL PERFORMANCE CHARACTERISTICS HAVE BEEN DETERMINED BY [facility]. IT H NOT BEEN CLEARED OR APPROVED BY THE FDA. THIS ASSAY HAS BEEN VALIDATED PURSU ANT TO THE CLIA REGULA TIONS AND IS USED FOR CLINICAL PURPOS ES. MDFmed [id number] [address] [address],[address] [place] [address] [phone] 00Mich malvin Khan MD RAC (test code Performing = RAC) Organization Information: Site ID: Z3E Name: [facility] Address: [address] [place] [address], [address] [place] [phone] Director: Tim Khan MD [facility] ShorelineDmmtdxxkZxbdfwgnyifb2767-39-07 16:52:00 Test Item Value Reference Interpretation Comments Range Testoster 507 ng/dL 250-1100 For additional information, one, please refer total, tohttps://educa tiyuriy.SmartSky Networksdiagn lc/ms/ms Clinical Data/faq/ TotalTestostero (test neLCMSMS (This link is being code = provided for 6-8) informational/e ducational purposes only.) (Note) This test was develo ped and its analytical performancechar acteristics have been deter mined by [employer]. It h as notbeen cleared or appr yaa by the FDA. This assay has been validatedpursua nt to the CLIA regulations and is used for clinical purpos es. MDFmed [id number] [address],[address] [phone] MD RAY Escobar (test Performing code = Organization RAC) Information: Site ID: Z3E Name: [employer] Address: [address] [place] [address], [address] [place] [address] Director: Tim BlankenshipNewton Medical CenterThyroid stimulating obamffg4404-06-04 16:52:00 Test Item Value Reference Range Interpretation Comments TSH (test 1.34 See_Comment [Automated mes anna] code = The system [employer] 3016-3) generated this result transmit ang reference range : 0.40 - 4.50 mIU /L. The reference r mercedes was not used to interpret this result as normal/abnormal . RAC (test Performing code = RAC) Organization Information: Site ID: [facility] Name: [employer] Address: [address] [place] [address] Director: Rafat Hercules [facility] ShorelineRheumatoid [id number] 16:52:00 Test Item Value Reference Range Interpretation Comments Rheumatoid factor <14 See_Comment [Automate d (test code = message] The 34158-0) system which generated this result transmit ang reference range : <14 IU/mL. The reference range was not used to interpret this result as normal/abnormal . RAC (test code = Performing RAC) Organization Information: Site ID: [facility] Name: [employer] Address: [address] [place] [address] Director: Rafat Hercules [facility] ShorelineHemoglobinopathy [id number] 16:52:00 Test Item Value Reference Interpretation Comments Range RBC (test code = 2.82 See_Comment L [Automated message] 789-8) The system [employer] generated this result transmit ang reference range : 4.20 - 5.80 Million/uL. The reference range was not used to interpret this result as normal/abnormal . HGB (test code = 10.0 g/dL 13.2-17.1 L 718-7) HCT (test code = 30.4 % 38.5-50.0 L 4544-3) MCV (test code = 107.8 fL 80.0-100.0 H 787-2) MCH (test code = 35.5 pg 27.0-33.0 H 785-6) RDW (test code = 18.4 % 11.0-15.0 H 788-0) Hemoglobin A (test 97.2 % >=96.0 code = 4546-8) Hemoglobin F (test 0.5 % <=2.0 code = 4576-5) Hemoglobin A2 (test 2.3 % 2.2-3.2 code = 4551-8) Interpretation Normal hemogl obin (test code = pattern. Due to high 40490-1) MCV or MCH, the followingshould be considered: B-1 2 and Folate deficien cy, medications,hyp othyr oidism, liver dysfunction, reticulocytosis ordyserythropoi esis. RAC (test code = Performing RAC) Organization Information: Site ID: IG Name: [employer] Address: [address] [place] [address] Director: Dr. Rafat Hercules Lab Interpretation Abnormal (test code = 27087-9) [facility] [id number] 16:52:00 Test Item Value Reference Range Interpretation Comments Sedimentation rate 14 mm/h See_Comment [Automat ed (test code = 4537-7) message ] The system which generated this result transmitted reference range : < OR = 20. The reference range was not used to interpret this result as normal/abnormal . RAC (test code = Performing RAC) Organization Information: Site ID: RGA Name: [employer] Address: [address] [place] [address] Director: Rafat Hercules [facility] ShorelineHepatitis B surface [id number] 16:52:00 Test Item Value Reference Range Interpretation Comments Hepatitis B surface NON-REACTIVE NON-REACTIVE Ag (test code = 5196-1) RAC (test code = RAC) Performing Organization Information: Site ID: [facility] Name: [employer] Address: [address] [place] [address] Director: Rafat L DelisaMercy HospitalProtein electrophoresis, [id number] 16:52:00 Test Item Value Reference Range Interpretation Comments Protein (test code = 6.8 g/dL 6.1-8.1 2885-2) Interpretation (test Normal pattern. code = 61098-6) No monoclona l proteins detected. Albumin, S (test code 4.1 g/dL 3.8-4.8 = 2862-1) Yohfs-1-alhhisnu 0.3 g/dL 0.2-0.3 (test code = 2865-4) Lwwqi-2-kwcidlfa 0.8 g/dL 0.5-0.9 (test code = 2868-8) Beta-1 globulin (test 0.4 g/dL 0.4-0.6 code = 29249-2) Beta-2 globulin (test 0.4 g/dL 0.2-0.5 code = 78340-0) Gamma globulin (test 0.9 g/dL 0.8-1.7 code = 2874-6) Interpretation (test No abno rmal code = 56522-4) protein band (M-protein) detected. RAC (test code = RAC) Performing Organization Information: Site ID: IG Name: [employer] Address: [address] [place] [address] Director: Dr. Rafat KurtzMercy HospitalVitamin B1 level, whole adphl0943-80-75 16:52:00 Test Item Value Reference Range Interpretation Comments Vitamin B1, 86 nmol/L 78-185 Vitamin whole blood supplementation (test code = within 24 hours prior 06551-0) toblood draw ma y affect the accu racy of results. Thi s test was developed a nd its analytical performance characteristics have been determined by [employer]. It has not been cl eared or approved by theA. This as say has been valida ang pursuant to the CLIA regulations and is used for clinic al purposes. RAC (test code Performing = RAC) Organization Information: Site ID: SLI Name: [employer]Ana Grinnell Address: [address] [place] [address] Director: Stephan Bains M.D. [facility] ShorelineHepatitis C [id number] 16:52:00 Test Item Value Reference Range Interpretation Comments Hepatitis C Ab NON-REACTIVE NON-REACTIVE (test code = 72036-3) Signal/cutoff 0.09 <=1.00 HCV antibody was (test code = non-reactive. 37984-3) There is no laboratory evidence of HCV infection. In m ost cases, no furth er action is required. However,if rece nt HCV exposure is suspected, a te st for HCV RNA(martin t code 75253) is suggested. For additional information ple ase refer tohttp://educat ion .[employer]. [employer]/faq/SFL95a9 (Th is link is rula reid provided for informational/e vimal ational purpose s only.) RAC (test code = Performing RAC) Organization Information: Site ID: RGA Name: [facility] Address: [address] [place] [address] Director: Rafat Hercules [facility] ShorelineLqgsgpanFbzdqgagksqgfa3381-27-28 16:52:00 Test Item Value Reference Range Interpretation Comments Erythropoietin (test 76.4 See_Comment H [Autom ated code = 23432-3) message] The system which generated this result transmitted reference range : 2.6 - 18.5 mIU/mL. The reference range was not used to interpret this result as normal/abnormal . RAC (test code = Performing RAC) Organization Information: Site ID: IG Name: [employer] Address: [address] [place] [address] Director: Dr. Rafat Hercules Lab Interpretation Abnormal (test code = 52773-5) [facility] immunodeficiency virus 1 (HIV-1), quantitative PCR 2022-03-30 16:52:00 Test Item Value Reference Range Interpretation Comments HIV-1 RNA, NOT DETECTED NOT DETECTED quantitative PCR copies/mL (test code = 50902-2) log10 HIV-1 RNA NOT DETECTED NOT DETECTED Log This te st was (test code = copies/mL performed using 49852-7) Real-Time Polymerase ChainReaction. Reportable Range: 20 copies/mL to 10,000,000 copies/mL(1.30 log copies/mL t o 7.00 log copies/mL). RAC (test code = Performing RAC) Organization Information: Site ID: IG Name: [employer] Address: [address] [place] [address] Director: Dr. Rafat Hercules [facility] ShorelineReticulocyte count, [id number] 16:52:00 Test Item Value Reference Range Interpretation Comments Retic count, manual 3.3 % (test code = 29737-8) Retic absolute, auto 37626 See_Comment H [Autom ated (test code = message] The 80694-7) system which generated this result transmitted reference range : 25,000 - 90,000 cells/uL. The reference range was not used to interpret this result as normal/abnormal . RAC (test code = Performing RAC) Organization Information: Site ID: RGA Name: [employer] Address: [address] [place] [address] Director: Rafat Hercules Lab Interpretation Abnormal (test code = 58902-4) [facility]lineANA SCREEN W IFA W REFLEX TO [id number] 16:52:00 Test Item Value Reference Range Interpretation Comments GIOVANNA Screen NEGATIVE NEGATIVE GIOVANNA IFA is a fi rst line (test code = screen for dete cting 80489-3) thepresence of up to approximately 1 50 autoantibodies invarious autoimmune dise ases. A negative GIOVANNA IF A resultsuggests an GIOVANNA-associated autoimmune disease is notp resent at this time, but is not definitive. If thereis high clinical s uspicion for Sjogren's syndrome,testin g for anti-SS-A/Ro an tibody should be considered.Anti -Neena-1 antibody should be considered for clinicallysuspe cted inflammatory my opathies. AC-0: Negative International C onsensus on GIOVANNA Patterns(https: //doi.org/ 10.1515/ccl-20 18-2) For additional information, pl ease refer tohttp://educat ion.[employer]/ faq/ZXI570 (This link is b eing provided for informational/e ducational purposes only.) RAC (test Performing code = RAC) Organization Information: Site ID: IG Name: [employer] Address: [address] [place] [address] Director: Dr. Rafat Hercules [facility] ShorelineVitamin B12 [id number] 16:52:00 Test Item Value Reference Range Interpretation Comments Vitamin B12 (test code = 1359 pg/mL 200-1100 H 2132-9) RAC (test code = RAC) Performing Organization Information: Site ID: RGA Name: [employer] Address: [address] [place] [address] Director: Rafat Hercules Lab Interpretation (test Abnormal code = 30414-1) [facility]lineF[facility] [id number] 16:52:00 Test Item Value Reference Range Interpretation Comments Folate (test 11.8 ng/mL Reference Rang e code = 2284-8) Low: <3.4 Borderline: 3.4-5.4 Normal: >5.4 RAC (test code Performing = RAC) Organization Information: Site ID: RGA Name: [facility] Address: [address] [place] [address] Director: Rafat Hercules [facility] ShorelineVitamin B6 level, klzhhg1500-08-36 16:52:00 Test Item Value Reference Range Interpretation Comments Vitamin B6 5.7 ng/mL 2.1-21.7 (Note)VITAMIN (test code = SUPPLEMENTATION 2900-9) WITHIN 24 HOURS PRIOR TO BLOOD DRAW M AY AFFECT THE ACCU RACY OF RESULTS. THI S TEST WAS DEVELOPED A ND ITS ANALYTICAL PERFORMANCE CHARACTERISTICS HAVE BEEN DETERMINED BY [facility]. IT H NOT BEEN CLEARED OR APPROVED BY THE FDA. THIS ASSAY HAS BEEN VALIDATED PURSU ANT TO THE CLIA REGULA TIONS AND IS USED FOR CLINICAL PURPOS ES. MDFmed [id number] [address] [address],[address] [place] [address] [phone] 00Mich malvin Khan MD RAC (test code Performing = RAC) Organization Information: Site ID: Z3E Name: [employer] Address: [address] [place] [address], [address] [place] [address] Director: Tim Khan MD [facility] ShorelineJhvhmenwGharplmzioxw9998-80-71 16:52:00 Test Item Value Reference Interpretation Comments Range Testoster 507 ng/dL 250-1100 For additional information, one, please refer total tohttps://azeb an.eXelate lc/ms/ms Clinical Data/faq/ TotalTestostero (test neLCMSMS (This link is being code = provided for 2986-01) informational/e ducational purposes only.) (Note) This test was develo ped and its analytical performancechar acteristics have been deter mined by [employer]. It h as notbeen cleared or appr yaa by the FDA. This assay has been validatedpursua nt to the CLIA regulations and is used for clinical purpos es. MDFmed [id number] [address],[address] [id number] 00Tim Khan MD RAC (test Performing code = Organization RAC) Information: Site ID: Z3E Name: [employer] [facility] Address: [address] [place] [address], [address] [place] [address] Director: Tim Webber HospitalThyroid stimulating umolgew0308-11-16 16:52:00 Test Item Value Reference Range Interpretation Comments TSH (test 1.34 See_Comment [Automated mes anna] code = The system [employer] 3016-3) generated this result transmit ang reference range : 0.40 - 4.50 mIU /L. The reference r mercedes was not used to interpret this result as normal/abnormal . RAC (test Performing code = RAC) Organization Information: Site ID: A Name: [employer] Address: [address] [place] [address] Director: Rafat Hercules [facility]line[facility]heumatoid [id number] 16:52:00 Test Item Value Reference Range Interpretation Comments Rheumatoid factor <14 See_Comment [Automate d (test code = message] The 21621-2) system which generated this result transmit ang reference range : <14 IU/mL. The reference range was not used to interpret this result as normal/abnormal . RAC (test code = Performing RAC) Organization Information: Site ID: A Name: [employer] Address: [address] [place] [address] Director: Rafat Hercules [facility] ShorelineHemoglobinopathy [id number] 16:52:00 Test Item Value Reference Interpretation Comments Range RBC (test code = 2.82 See_Comment L [Automated message] 789-8) The system [employer] generated this result transmit ang reference range : 4.20 - 5.80 Million/uL. The reference range was not used to interpret this result as normal/abnormal . HGB (test code = 10.0 g/dL 13.2-17.1 L 718-7) HCT (test code = 30.4 % 38.5-50.0 L 4544-3) MCV (test code = 107.8 fL 80.0-100.0 H 787-2) MCH (test code = 35.5 pg 27.0-33.0 H 785-6) RDW (test code = 18.4 % 11.0-15.0 H 788-0) Hemoglobin A (test 97.2 % >=96.0 code = 4546-8) Hemoglobin F (test 0.5 % <=2.0 code = 4576-5) Hemoglobin A2 (test 2.3 % 2.2-3.2 code = 4551-8) Interpretation Normal hemogl obin (test code = pattern. Due to high 20864-8) MCV or MCH, the followingshould be considered: B-1 2 and Folate deficien cy, medications,hyp othyr oidism, liver dysfunction, reticulocytosis ordyserythropoi esis. RAC (test code = Performing RAC) Organization Information: Site ID: IG Name: [facility] Lab Address: [address] [place] [address] Director: Dr. Rafat Hercules Lab Interpretation Abnormal (test code = 86559-1) [facility] [id number] 16:52:00 Test Item Value Reference Range Interpretation Comments Sedimentation rate 14 mm/h See_Comment [Automat ed (test code = 4537-7) message ] The system which generated this result transmitted reference range : < OR = 20. The reference range was not used to interpret this result as normal/abnormal . RAC (test code = Performing RAC) Organization Information: Site ID: RGA Name: [employer] Address: [address] [place] [address] Director: Rafat Hercules [facility] B surface [id number] 16:52:00 Test Item Value Reference Range Interpretation Comments Hepatitis B surface NON-REACTIVE NON-REACTIVE Ag (test code = 5196-1) RAC (test code = RAC) Performing Organization Information: Site ID: RGA Name: [employer] Address: [address] [place] [address] Director: Rafat KurtzMercy HospitalProtein electrophoresis, [id number] 16:52:00 Test Item Value Reference Range Interpretation Comments Protein (test code = 6.8 g/dL 6.1-8.1 2885-2) Interpretation (test Normal pattern. code = 39183-2) No monoclona l proteins detected. Albumin, S (test code 4.1 g/dL 3.8-4.8 = 2862-1) Ywwbi-8-xccvloau 0.3 g/dL 0.2-0.3 (test code = 2865-4) Vstry-5-hsjvkkdv 0.8 g/dL 0.5-0.9 (test code = 2868-8) Beta-1 globulin (test 0.4 g/dL 0.4-0.6 code = 19410-4) Beta-2 globulin (test 0.4 g/dL 0.2-0.5 code = 31701-4) Gamma globulin (test 0.9 g/dL 0.8-1.7 code = 2874-6) Interpretation (test No abno rmal code = 48779-5) protein band (M-protein) detected. RAC (test code = RAC) Performing Organization Information: Site ID: IG Name: [employer] Address: [address] [place] [address] Director: Dr. Rafat KurtzMercy HospitalVitamin B1 level, whole [id number] 16:52:00 Test Item Value Reference Range Interpretation Comments Vitamin B1, 86 nmol/L 78-185 Vitamin whole blood supplementation (test code = within 24 hours prior 15540-7) toblood draw ma y affect the accu racy of results. Thi s test was developed a nd its analytical performance characteristics have been determined by [employer]. It has not been cl eared or approved by theA. This as say has been valida ang pursuant to the CLIA regulations and is used for clinic al purposes. RAC (test code Performing = RAC) Organization Information: Site ID: SLI Name: [employer]Ana [facility]innell Address: [address] [place] [address] Director: Stephan Bains M.D. [facility] C [id number] 16:52:00 Test Item Value Reference Range Interpretation Comments Hepatitis C Ab NON-REACTIVE NON-REACTIVE (test code = 85410-8) Signal/cutoff 0.09 <=1.00 HCV antibody was (test code = non-reactive. 85847-8) There is no laboratory evidence of HCV infection. In m ost cases, no furth er action is required. However,if rece nt HCV exposure is suspected, a te st for HCV RNA(martin t code 90490) is suggested. For additional information ple ase refer tohttp://educat ion .[employer]. [employer]ockee/faq/NMM42g2 (Th is link is rula jeanette provided for informational/e vimal ational purpose s only.) RAC (test code = Performing RAC) Organization Information: Site ID: RGA Name: [employer] Address: [address] [place] [address] Director: Rafat Hercules [facility] ShorelinePvxmjfhqWpusrzktkumnqd6172-25-27 16:52:00 Test Item Value Reference Range Interpretation Comments Erythropoietin (test 76.4 See_Comment H [Autom ated code = 80157-2) message] The system which generated this result transmitted reference range : 2.6 - 18.5 mIU/mL. The reference range was not used to interpret this result as normal/abnormal . RAC (test code = Performing RAC) Organization Information: Site ID: IG Name: [employer] Address: [address] [place] [address] Director: Dr. Rafat Hercules Lab Interpretation Abnormal (test code = 72055-0) [facility] immunodeficiency virus 1 (HIV-1), quantitative PCR 2022-03-30 16:52:00 Test Item Value Reference Range Interpretation Comments HIV-1 RNA, NOT DETECTED NOT DETECTED quantitative PCR copies/mL (test code = 90556-0) log10 HIV-1 RNA NOT DETECTED NOT DETECTED Log This te st was (test code = copies/mL performed using 96918-2) Real-Time Polymerase ChainReaction. Reportable Range: 20 copies/mL to 10,000,000 copies/mL(1.30 log copies/mL t o 7.00 log copies/mL). RAC (test code = Performing RAC) Organization Information: Site ID: IG Name: [employer] Address: [address] [place] [address] Director: Dr. Rafat Hercules [facility] ShorelineReticulocyte count, [id number] 16:52:00 Test Item Value Reference Range Interpretation Comments Retic count, manual 3.3 % (test code = 37109-6) Retic absolute, auto 17429 See_Comment H [Autom ated (test code = message] The 89194-3) system which generated this result transmitted reference range : 25,000 - 90,000 cells/uL. The reference range was not used to interpret this result as normal/abnormal . RAC (test code = Performing RAC) Organization Information: Site ID: RGA Name: [employer] Lab Address: [address] [place] [address] Director: Rafat Hercules Lab Interpretation Abnormal (test code = 47753-0) [facility]lineANA SCREEN W IFA W REFLEX TO [id number] 16:52:00 Test Item Value Reference Range Interpretation Comments GIOVANNA Screen NEGATIVE NEGATIVE GIOVANNA IFA is a fi rst line (test code = screen for dete cting 61310-9) thepresence of up to approximately 1 50 autoantibodies invarious autoimmune dise ases. A negative GIOVANNA IF A resultsuggests an GIOVANNA-associated autoimmune disease is notp resent at this time, but is not definitive. If thereis high clinical s uspicion for Sjogren's syndrome,testin g for anti-SS-A/Ro an tibody should be considered.Anti -Neena-1 antibody should be considered for clinicallysuspe cted inflammatory my opathies. AC-0: Negative International C onsensus on GIOVANNA Patterns(https: //doi.org/ 10.1515/cclm-20 18-0052) For additional information, pl ease refer tohttp://educat ion.[employer]/ faq/DWZ218 (This link is b eing provided for informational/e ducational purposes only.) RAC (test Performing code = RAC) Organization Information: Site ID: IG Name: [facility] Lab Address: [address] [place] [address] Director: Dr. Rafat Hercules [facility] ShorelineVitamin B12 [id number] 16:52:00 Test Item Value Reference Range Interpretation Comments Vitamin B12 (test code = 1359 pg/mL 200-1100 H 2132-9) RAC (test code = RAC) Performing Organization Information: Site ID: RGA Name: [facility] Address: [address] [place] [address] Director: Rafat Hercules Lab Interpretation (test Abnormal code = 68189-6) [facility] ShorelineFolate [id number] 16:52:00 Test Item Value Reference Range Interpretation Comments Folate (test 11.8 ng/mL Reference Rang e code = 2284-8) Low: <3.4 Borderline: 3.4-5.4 Normal: >5.4 RAC (test code Performing = RAC) Organization Information: Site ID: GHISLAINE Name: [facility] Address: [address] [place] [address] Director: Rafat Hercules [facility] ShorelineVitamin B6 level, [id number] 16:52:00 Test Item Value Reference Range Interpretation Comments Vitamin B6 5.7 ng/mL 2.1-21.7 (Note)VITAMIN (test code = SUPPLEMENTATION 2900-9) WITHIN 24 HOURS PRIOR TO BLOOD DRAW M AY AFFECT THE ACCU RACY OF RESULTS. THI S TEST WAS DEVELOPED A ND ITS ANALYTICAL PERFORMANCE CHARACTERISTICS HAVE BEEN DETERMINED BY [employer]. IT H NOT BEEN CLEARED OR APPROVED BY THE FDA. THIS ASSAY HAS BEEN VALIDATED PURSU ANT TO THE CLIA REGULA TIONS AND IS USED FOR CLINICAL PURPOS ES. MDFmed [id number] 01 [facility] [address] [place] [address] [phone] 00Mich malvin Khan MD RAC (test code Performing = RAC) Organization Information: Site ID: Z3E Name: [employer] Address: [facility] [address], [address] [place] [address] Director: Tim Khan MD [facility] ShorelineCrwiagnkAevqchawhuax6070-53-10 16:52:00 Test Item Value Reference Interpretation Comments Range Testoster 507 ng/dL 250-1100 For additional information, one, please refer total, tohttps://azeb an.SmartSky Networksdiagn lc/ms/ms [employer]oc[employer]/faq/ TotalTestostero (test neLCMSMS (This link is being code = provided for 2986-8) informational/e ducational purposes only.) (Note) This test was develo ped and its analytical performancechar acteristics have been deter mined by [employer]. It h as notbeen cleared or appr yaa by the FDA. This assay has been validatedpursua nt to the CLIA regulations and is used for clinical purpos es. MDed [id number] [address],[address] [phone] 00Tim Khan MD RAC (test Performing code = Organization RAC) Information: Site ID: Z3E Name: [address] Address: [address] [place] [address], [address] [place] [address] Director: Tim Webber [facility] HospitalThyroid stimulating [id number] 16:52:00 Test Item Value Reference Range Interpretation Comments TSH (test 1.34 See_Comment [Automated mes anna] code = The system ic h 3016-3) generated this result transmit ang reference range : 0.40 - 4.50 mIU /L. The reference r mercedes was not used to interpret this result as normal/abnormal . RAC (test Performing code = RAC) Organization Information: Site ID: [facility] Name: [employer] Address: [address] [place] [address] Director: Rafat Webber [facility] HospitalRheumatoid [id number] 16:52:00 Test Item Value Reference Range Interpretation Comments Rheumatoid factor <14 See_Comment [Automate d (test code = message] The 28731-6) system which generated this result transmit ang reference range : <14 IU/mL. The reference range was not used to interpret this result as normal/abnormal . RAC (test code = Performing RAC) Organization Information: Site ID: [facility] Name: [employer] Address: [address] [place] [address] Director: Rafat Webber [facility] HospitalHemoglobinopathy [id number] 16:52:00 Test Item Value Reference Interpretation Comments Range RBC (test code = 2.82 See_Comment L [Automated message] 789-8) The system [facility] CAIS generated this result transmit ang reference range : 4.20 - 5.80 Million/uL. The reference range was not used to interpret this result as normal/abnormal . HGB (test code = 10.0 g/dL 13.2-17.1 L 718-7) HCT (test code = 30.4 % 38.5-50.0 L 4544-3) MCV (test code = 107.8 fL 80.0-100.0 H 787-2) MCH (test code = 35.5 pg 27.0-33.0 H 785-6) RDW (test code = 18.4 % 11.0-15.0 H 788-0) Hemoglobin A (test 97.2 % See_Comment [Automat ed message] code = 4546-8) The system [facility] generated this result transmit ang reference range : >=96.0. The reference range was not used to interpret this result as normal/abnormal . Hemoglobin F (test 0.5 % See_Comment [Automat ed message] code = 4576-5) The system [facility] generated this result transmit ang reference range : <=2.0. The refe rence range was not u sed to interpret th is result as normal/abnormal . Hemoglobin A2 (test 2.3 % 2.2-3.2 code = 4551-8) Interpretation Normal hemogl obin (test code = pattern. Due to high 26946-8) MCV or MCH, the followingshould be considered: B-1 2 and Folate deficien cy, medications,hyp othyr oidism, liver dysfunction, reticulocytosis ordyserythropoi esis. RAC (test code = Performing RAC) Organization Information: Site ID: IG Name: [facility] Address: [address] [place] [phone] Director: Dr. Rafat Hercules Lab Interpretation Abnormal (test code = 69093-8) [facility] Indianaediment[facility] [id number] 16:52:00 Test Item Value Reference Range Interpretation Comments Sedimentation rate 14 mm/h See_Comment [Automat ed (test code = 4537-7) message ] The system which generated this result transmitted reference range : < OR = 20. The reference range was not used to interpret this result as normal/abnormal . RAC (test code = Performing RAC) Organization Information: Site ID: GHISLAINE Name: [employer] Address: [address] [place] [address] Director: Rafat Hercules [facility] ShorelineHepatitis B surface [id number] 16:52:00 Test Item Value Reference Range Interpretation Comments Hepatitis B surface NON-REACTIVE NON-REACTIVE Ag (test code = 5196-1) RAC (test code = RAC) Performing Organization Information: Site ID: RGA Name: [employer] Address: [address] [place] [address] Director: Rafat Hercules [facility] ShorelineProtein electrophoresis, [id number] 16:52:00 Test Item Value Reference Range Interpretation Comments Protein (test code = 6.8 g/dL 6.1-8.1 2885-2) Interpretation (test Normal pattern. code = 50503-9) No monoclona l proteins detected. Albumin, S (test code 4.1 g/dL 3.8-4.8 = 2862-1) Iikjp-8-znbvajpx 0.3 g/dL 0.2-0.3 (test code = 2865-4) Peyfs-9-nvgsexzt 0.8 g/dL 0.5-0.9 (test code = 2868-8) Beta-1 globulin (test 0.4 g/dL 0.4-0.6 code = 59354-4) Beta-2 globulin (test 0.4 g/dL 0.2-0.5 code = 76451-8) Gamma globulin (test 0.9 g/dL 0.8-1.7 code = 2874-6) Interpretation (test No abno rmal code = 25788-7) protein band (M-protein) detected. RAC (test code = RAC) Performing Organization Information: Site ID: IG Name: [employer] Lab Address: [address] [place] [address] Director: Dr. Rafat Hercules [facility] ShorelineVitamin B1 level, whole gusme4920-93-27 16:52:00 Test Item Value Reference Range Interpretation Comments Vitamin B1, 86 nmol/L 78-185 Vitamin whole blood supplementation (test code = within 24 hours prior 66805-5) toblood draw ma y affect the accu racy of results. Thi s test was developed a nd its analytical performance characteristics have been determined by [employer]. It has not been cl eared or approved by theA. This as say has been valida ang pursuant to the CLIA regulations and is used for clinic al purposes. RAC (test code Performing = RAC) Organization Information: Site ID: SLI Name: [employer] Address: [address] [place] [address] Director: Stephan Bains M.D. [facility] ShorelineHepatitis C [id number] 16:52:00 Test Item Value Reference Range Interpretation Comments Hepatitis C Ab NON-REACTIVE NON-REACTIVE (test code = 22113-4) Signal/cutoff 0.09 See_Comment HCV antibody was (test code = non-reactive. 30601-6) There is no laboratory evidence of HCV infection. In m ost cases, no furth er action is required. However,if rece nt HCV exposure is suspected, a te st for HCV RNA(martin t code 65184) is suggested. For additional information ple ase refer tohttp://educat ion .SmartSky Networksdiagnosti Pixsta. com/faq/INT07u7 (Th is link is rula reid provided for informational/e vimal ational purpose s only.) [Automat ed message] The system which generated this result transmit ang reference range : <=1.00. The reference range was not used to interpret this result as normal/abnormal . RAC (test code = Performing RAC) Organization Information: Site ID: RGA Name: [employer] Address: [address] [place] [address] Director: Rafat Hercules [facility] ShorelineXzlozkrcDxwwznmsfyvpym6066-22-24 16:52:00 Test Item Value Reference Range Interpretation Comments Erythropoietin (test 76.4 See_Comment H [Autom ated code = 65353-7) message] The system which generated this result transmitted reference range : 2.6 - 18.5 mIU/mL. The reference range was not used to interpret this result as normal/abnormal . RAC (test code = Performing RAC) Organization Information: Site ID: IG Name: [facility] Address: [address] [place] [address] Director: Dr. Rafat Hercules Lab Interpretation Abnormal (test code = 79726-1) [facility] immunodeficiency virus 1 (HIV-1), quantitative PCR 2022-03-30 16:52:00 Test Item Value Reference Range Interpretation Comments HIV-1 RNA, NOT DETECTED NOT DETECTED quantitative PCR copies/mL (test code = 11327-4) log10 HIV-1 RNA NOT DETECTED NOT DETECTED Log This te st was (test code = copies/mL performed using 30341-9) Real-Time Polymerase ChainReaction. Reportable Range: 20 copies/mL to 10,000,000 copies/mL(1.30 log copies/mL t o 7.00 log copies/mL). RAC (test code = Performing RAC) Organization Information: Site ID: IG Name: [facility] Address: [address] [place] [address] Director: Dr. Rafat Hercules [facility] ShorelineReticulocyte count, [id number] 16:52:00 Test Item Value Reference Range Interpretation Comments Retic count, manual 3.3 % (test code = 30396-5) Retic absolute, auto 87953 See_Comment H [Autom ated (test code = message] The 53024-5) system which generated this result transmitted reference range : 25,000 - 90,000 cells/uL. The reference range was not used to interpret this result as normal/abnormal . RAC (test code = Performing RAC) Organization Information: Site ID: RGA Name: [employer] Address: [address] [place] [address] Director: Rafat Hercules Lab Interpretation Abnormal (test code = 36217-9) [facility]line[facility] SCREEN W IFA W REFLEX TO [id number] 16:52:00 Test Item Value Reference Range Interpretation Comments GIOVANNA Screen NEGATIVE NEGATIVE GIOVANNA IFA is a fi rst line (test code = screen for dete cting 21374-8) thepresence of up to approximately 1 50 autoantibodies invarious autoimmune dise ases. A negative GIOVANNA IF A resultsuggests an GIOVANNA-associated autoimmune disease is notp resent at this time, but is not definitive. If thereis high clinical s uspicion for Sjogren's syndrome,testin g for anti-SS-A/Ro an tibody should be considered.Anti -Neena-1 antibody should be considered for clinicallysuspe cted inflammatory my opathies. AC-0: Negative International C onsensus on GIOVANNA Patterns(https: //doi.org/ 10.1515/[facility]-20 18-0052) For additional information, pl ease refer tohttp://educat ion.[employer]/ faq/RNY253 (This link is b eing provided for informational/e ducational purposes only.) RAC (test Performing code = RAC) Organization Information: Site ID: IG Name: [employer] Address: [address] [place] [address] Director: Dr. Rafat Hercules [facility] 12 [id number] 18:55:00 Test Item Value Reference Range Interpretation Comments Lab Interpretation (test code = Abnormal 19849-8) [facility]
[2023-02-11 14:39] LABS: Absolute Lymphocytes (CBC) 1.3 K/uL (0.7-4.9); Hematocrit 32.9 % (39.6-49.0); Lymphocytes % 40.1 % (15.3-44.8); MCV 108.1 fL (80-100); MPV 7.6 fL (7.6-11.3); Platelets 240 thou/uL (152-406); RBC Red Blood Cell Count 3.04 M/uL (4.33-5.43)
[2023-02-11 14:42] LABS: Protime INR 1.05
--- NOTE | 2023-02-11 14:48 | RAD REPORT ---
EXAM DESCRIPTION: Frida Single View02/11/2023 2:38 pm CLINICAL HISTORY: Chest pain/hypertension COMPARISON: none FINDINGS: The lungs appear clear of acute infiltrate. The heart is normal size. Pacemaker leads in place IMPRESSION: No acute abnormalities displayed
[2023-02-11 15:01] LABS: Potassium 4.2 mEq/L (3.5-5.1); Troponin High Sensitivity 12.7 pg/mL (<58.9)
--- NOTE | 2023-02-11 15:34 | ER ---
Nurse's Notes [facility] Name: Eliecer Mix Age: 82 yrs Sex: Male : 1940 Arrival Date: 02/11/2023 Time: 13:10 Bed 19 Private MD: Diagnosis: Essential (primary) hypertension Presentation: 02/11 13:20 Chief complaint: Chief complaint: "I don't feel well, I am worried it is my blood hb pressure." Reports left arm pain and generalized weakness. Denies CP/SOB/dizziness. VAN Negative. 13:21 Coronavirus screen: At this time, the client does not indicate any symptoms associated hb with coronavirus-19. Ebola Screen: No symptoms or risks identified at this time. Initial Sepsis Screen: Does the patient meet any 2 criteria? No. Patient's initial sepsis screen is negative. Does the patient have a suspected source of infection? No. Patient's initial sepsis screen is negative. Risk Assessment: Do you want to hurt yourself or someone else? Patient reports no desire to harm self or others. Onset of symptoms was February 10, 2023. 13:21 Acuity: ZACHARIAH 3 hb 13:21 Method Of Arrival: Ambulatory hb Historical: - Allergies: 13:20 No Known Allergies; hb - PMHx: 13:20 Hypertension; hb - PSHx: 13:20 Aortic Valve Replacement; Pacemaker; hb - Immunization history:: Adult Immunizations up to date. - Social history:: Smoking status: Patient denies any tobacco usage or history of. - Family history:: not pertinent. - Hospitalizations: : No recent hospitalization is reported. Screenin:55 [facility] ED Fall Risk Assessment (Adult) Score/Fall Risk Level 0 - 2 = Low Risk. Abuse eh3 screen: Denies threats or abuse. Denies injuries from another. Nutritional screening: No deficits noted. Tuberculosis screening: No symptoms or risk factors identified. Assessment: 13:55 General: Appears in no apparent distress. uncomfortable, Behavior is calm, cooperative, eh3 appropriate for age. Pain: Denies pain. Neuro: Level of Consciousness is awake, alert, obeys commands, Oriented to person, place, time, situation. Cardiovascular: Reports chest pressure Capillary refill < 3 seconds Patient's skin is warm and dry. Respiratory: Airway is patent Respiratory effort is even, unlabored, Respiratory pattern is regular, symmetrical. GI: Abdomen is round non-distended. Derm: Skin is pink, warm \\T\\ dry. Musculoskeletal: Circulation, motion, and sensation intact. 14:30 Reassessment: Patient appears in no apparent distress at this time. Patient and/or eh3 family updated on plan of care and expected duration. Pain level reassessed. Patient is alert, oriented x 3, equal unlabored respirations, skin warm/dry/pink. 15:30 Reassessment: Patient appears in no apparent distress at this time. Patient and/or eh3 family updated on plan of care and expected duration. Pain level reassessed. Patient is alert, oriented x 3, equal unlabored respirations, skin warm/dry/pink. Vital Signs: 13:21 BP 168 / 87; Pulse 81; Resp 16; Temp 98; Pulse Ox 100% on R/A; hb 14:30 BP 155 / 76; Pulse 70; Resp 15; Pulse Ox 98% on R/A; eh3 15:30 BP 156 / 74; Pulse 69; Resp 14; Pulse Ox 100% on R/A; eh3 ED Course: 13:11 Patient arrived in ED. rg4 13:18 Ronald Cabrera MD is Attending Physician. rn 13:20 Arm band placed on. hb 13:22 Triage completed. hb 13:55 Patient has correct armband on for positive identification. Placed in gown. Bed in low eh3 position. Call light in reach. Side rails up X2. Provided Education on: Use of call randolph. Client placed on continuous cardiac and pulse oximetry monitoring. NIBP monitoring applied. 14:06 Funmi Florian, UZAIR is Primary Nurse. eh3 14:30 Inserted saline lock: 20 gauge in left antecubital area, using aseptic technique. Blood eh3 collected. 14:40 XRAY Chest (1 view) In Process Unspecified. EDMS 15:55 No provider procedures requiring assistance completed. IV discontinued, intact, eh3 bleeding controlled, No redness/swelling at site. Pressure dressing applied. Administered Medications: No medications were administered Medication: 15:55 VIS not applicable for this client. eh3 Outcome: 15:34 Discharge ordered by . rn 15:55 Discharged to home ambulatory, with family. eh3 15:55 Condition: stable 15:55 Discharge instructions given to patient, Instructed on discharge instructions, follow up and referral plans. Demonstrated understanding of instructions, follow-up care. 15:55 Patient left the ED. eh3 Signatures: Dispatcher [employer] EDRonald Cavazos MD MD rn Baxter, Heather, RN RN hb Garcia, Rubi 4 Funmi Florian RN RN 3 Corrections: (The following items were deleted from the chart) 13:24 13:21 Chief complaint: hb hb
--- NOTE | 2023-02-11 15:35 | EDPHYS ---
Physician Documentation [facility] Name: Eliecer Mix Age: 82 yrs Sex: Male : 1940 Arrival Date: 02/11/2023 Time: 13:10 Bed 19 Private MD: ED Physician Ronald Cabrera HPI: 02/11 13:30 This 82 yrs old Male presents to ER via Ambulatory with complaints of Blood rn Pressure Problem. 13:30 Pt feels like blood pressure is elevated, has been working at home, physical work, and rn began feeling bad yesterday. Reports generalized malaise and fatigue, with left arm aching. No chest pain/sob/focal neuro complaint/abd pain/vision changes. No syncope. . Onset: The symptoms/episode began/occurred yesterday. Severity of symptoms: At their worst the symptoms were mild in the emergency department the symptoms have improved. The patient has not experienced similar symptoms in the past. The patient has not recently seen a physician. Historical: - Allergies: 13:20 No Known Allergies; hb - PMHx: 13:20 Hypertension; hb - PSHx: 13:20 Aortic Valve Replacement; Pacemaker; hb - Immunization history:: Adult Immunizations up to date. - Social history:: Smoking status: Patient denies any tobacco usage or history of. - Family history:: not pertinent. - Hospitalizations: : No recent hospitalization is reported. ROS: 13:30 Constitutional: Negative for fever, chills, and weight loss, Neck: Negative for injury, rn pain, and swelling, Cardiovascular: Negative for chest pain, palpitations, and edema, Respiratory: Negative for shortness of breath, cough, wheezing, and pleuritic chest pain, Abdomen/GI: Negative for abdominal pain, nausea, vomiting, diarrhea, and constipation, Back: Negative for injury and pain, MS/Extremity: Negative for injury and deformity, Skin: Negative for injury, rash, and discoloration, Neuro: Negative for headache, weakness, numbness, tingling, and seizure. Exam: 13:30 Constitutional: This is a well developed, well nourished patient who is awake, alert, rn and in no acute distress. Head/Face: Normocephalic, atraumatic. Eyes: Pupils equal round and reactive to light, extra-ocular motions intact. Cardiovascular: Regular rate and rhythm. No pulse deficits. Respiratory: No increased work of breathing, no retractions or nasal flaring. Abdomen/GI: soft, non-tender Skin: Warm, dry with normal turgor. Normal color with no rashes, no lesions, and no evidence of cellulitis. MS/ Extremity: Pulses equal, no cyanosis. Neurovascular intact. Full, normal range of motion. Equal circumference. Neuro: Awake and alert, GCS 15, oriented to person, place, time, and situation. Cranial nerves II-XII grossly intact. Motor strength 5/5 in all extremities. Sensory grossly intact. Cerebellar exam normal. Normal gait. 15:31 ECG was reviewed by the Attending Physician. rn Vital Signs: 13:21 BP 168 / 87; Pulse 81; Resp 16; Temp 98; Pulse Ox 100% on R/A; hb 14:30 BP 155 / 76; Pulse 70; Resp 15; Pulse Ox 98% on R/A; eh3 15:30 BP 156 / 74; Pulse 69; Resp 14; Pulse Ox 100% on R/A; eh3 MDM: 13:18 Patient medically screened. rn 15:32 Differential Diagnosis hypertension, AMI, malaise, heat exhaustion. Data reviewed: rn vital signs, nurses notes. 15:32 Counseling: I had a detailed discussion with the patient and/or guardian regarding the rn historical points, exam findings, and any diagnostic results supporting the discharge/admit diagnosis, lab results, radiology results, the need for outpatient follow up, to return to the emergency department if symptoms worsen or persist or if there are any questions or concerns that arise at home. Response to treatment: the patient's symptoms have mildly improved after treatment, and as a result, I will discharge patient. Special discussion: I discussed with the patient/guardian in detail that at this point there is no indication for admission to the hospital. It is understood, however, that if the symptoms persist or worsen the patient needs to return immediately for re-evaluation. ED course: Pt with neg w/u for acute problems. Pt with known mild myelodysplastic syndrome and getting shots for it. Pacemaker kicks in when HR drops below 60, no ischemia, trop neg. CXR neg. Will dc home with return precautions. . 02/11 13:26 Order name: Basic Metabolic Panel; Complete Time: 15:02 rn 02/11 13:26 Order name: CBC with Diff; Complete Time: 14:56 rn 02/11 13:26 Order name: NT PRO-BNP; Complete Time: 15:02 rn 02/11 13:26 Order name: PT-INR; Complete Time: 14:56 rn 02/11 13:26 Order name: Troponin HS; Complete Time: 15:02 rn 02/11 13:26 Order name: XRAY Chest (1 view); Complete Time: 14:56 rn 02/11 13:26 Order name: EKG; Complete Time: 13:26 rn 02/11 13:26 Order name: Cardiac monitoring; Complete Time: 14:21 rn 02/11 13:26 Order name: EKG - Nurse/Tech; Complete Time: 14:21 rn 02/11 13: Order name: IV Saline Lock; Complete Time: 14:35 rn 02/11 13: Order name: Labs collected and sent; Complete Time: 14:35 rn 02/11 13: Order name: O2 Per Protocol; Complete Time: 14:21 rn 02/11 13: Order name: O2 Sat Monitoring; Complete Time: 14:21 rn EC:31 Rate is 73 beats/min. Rhythm is regular. QRS is positive in lead I and negative in lead rn aVF. QRS interval is prolonged. QT interval is normal. No Q waves. T waves are Normal. No ST changes noted. Clinical impression: NSR w/ Non-specific ST/T Changes. Interpreted by me. Reviewed by me. Administered Medications: No medications were administered Disposition Summary: 02/11/23 15:34 Discharge Ordered Location: Home rn Problem: new rn Symptoms: have improved rn Condition: Stable rn Diagnosis - Essential (primary) hypertension rn Followup: rn - With: Private Physician - When: As needed - Reason: Recheck today's complaints, Re-evaluation by your physician Discharge Instructions: - Discharge Summary Sheet rn - Hypertension, Adult rn - Heart Disease pattern chain builder - Managing Your Hypertension rn Forms: - Medication Reconciliation Form rn - Thank You Letter rn - Antibiotic e learning designer - Prescription Opioid Use rn - Patient Portal Instructions rn - Leadership Thank You Letter rn Signatures: Dispatcher [employer] Ronald Trotter MD MD rn Baxter, Heather, RN RN hb
[2023-02-11 16:13] VITALS: TEMP 98; O2SAT 100
[2023-02-11 16:15] VITALS: BP 156/74
--- NOTE | 2023-02-13 15:09 | EKG ---
Test Date: 2023-02-11 Test Time: 14:18:31 Loan Closer: PEPPER MEASUREMENT RESULTS: Intervals: Rate: 73 NV: 158 QRSD: 138 QT: 468 QTc: 515 Girard: P: 5 NV: 158 QRS: -57 T: 20 INTERPRETIVE STATEMENTS: Sinus rhythm with premature atrial complexes Right bundle branch block Left anterior fascicular block Bifascicular block Abnormal ECG Compared to ECG 10/06/2006 02:04:27 Sinus bradycardia no longer present Bifascicular block still present Electronically Signed On 02-13-23 15:06:42 CDT by King Morrison
== END 2023-02-11 15:55 | disposition home or self-care (01) ==
LOC: ER 13:10
DX: I10 Essential (primary) hypertension (principal); Z95.810 Presence of automatic (implantable) cardiac defibrillator
CPT/HCPCS: 36415; 71045; 80048; 83880; 84484; 85025; 85610; 93005; 99284